=== PATIENT | female | born 1935 | race Caucasian/White ===

== ENCOUNTER 2016-11-21 06:44 | Day surgery (SDC) | payer OTHER ==
[~2016-11-21] VITALS: Ht 175.3 cm; Wt 56.7 kg
[2016-11-21] VITALS (7 sets, daily range): BP systolic 149–154; BP diastolic 88–102; PULSE 82–138; RESP 18–20; TEMP 97.2–97.8; O2SAT 95–97
[~2016-11-21 06:44] MED LIST: ASPI81 PO; CARD120C4 PO; GABA300C3 PO; LATA.005%O LEFT EYE; MECL25CH PO; TIMO.5%O EACH EYE; VITD400 PO
[2016-11-21] MEDS ORDERED: CHLORHEXIDINE GLUCONATE 2 % 1 PACK (2 CLOTHS) TOPICAL SCH (07:15)
[2016-11-21] MEDS: NS 1000 ML IV SCH (07:15)
[2016-11-21] MEDS ORDERED: POVIDONE IODINE 5% (ANTISEPSIS KIT) 4 APPLICATIONS EACH NARE SCH (07:15)
[2016-11-21] MEDS ORDERED: POVIDONE IODINE 5% (ANTISEPSIS KIT) 4 APPLICATIONS EACH NARE PRN (07:15)
[2016-11-21] MEDS ORDERED: INSULIN HUMAN REGULAR 1,000 UNITS/10 ML VIAL SQ PRN (07:15)
[2016-11-21] MEDS ORDERED: LORazepam 1 MG TAB SL SCH (07:15)
[2016-11-21] MEDS ORDERED: METOPROLOL TARTRATE 25 MG TAB PO PRN (07:15)
[2016-11-21] MEDS ORDERED: SODIUM CHLORID 0.9% 500 ML IV PRN (07:15)
[2016-11-21] MEDS ORDERED: MUPIROCIN 2% OINT 1 APPLIC/GM SYR NASAL SCH (07:15)
[2016-11-21] MEDS ORDERED: CHLORHEXIDINE GLUCONATE 2 % 1 PACK (2 CLOTHS) TOPICAL PRN (07:15)
[2016-11-21] MEDS ORDERED: LACTATED RINGER'S 1000 ML IV PRN (07:15)
[2016-11-21] MEDS ORDERED: ceFAZolin 2 GM PREMIX 50 ML IV SCH (07:15)
[2016-11-21] MEDS ORDERED: MIDAZOLAM HCL 2 MG/2 ML VIAL ONE (07:27)
[2016-11-21 07:39] LABS: AUTOMATED NEUTROPHIL # 4.5 TH/MM3 (1.8-7.7); BASOPHIL # 0.1 TH/MM3 (0-0.2); BASOPHIL % 0.9 % (0.0-2.0); EOSINOPHIL # 0.1 TH/MM3 (0-0.4); EOSINOPHIL % 1.8 % (0.0-4.0); HEMATOCRIT 46.9 % (35.0-46.0); HEMO FLAGS DIFF FINAL; LYMPH % 20.7 % (9.0-44.0); LYMPHOCYTE # 1.4 TH/MM3 (1.0-4.8); MEAN CELL VOLUME 89.6 FL (80.0-100.0); MEAN CORPUSCULAR HEMOGLOBIN 28.8 PG (27.0-34.0); MEAN CORPUSCULAR HGB CONC 32.2 % (32.0-36.0); MONO % 9.7 % (0.0-8.0); NEUT % 66.9 % (16.0-70.0); PLATELET COUNT 202 TH/MM3 (150-450); RED BLOOD COUNT 5.24 MIL/MM3 (4.00-5.30); RED CELL DISTRIBUTION WIDTH 16.2 % (11.6-17.2); WHITE BLOOD COUNT 6.8 TH/MM3 (4.0-11.0)
[2016-11-21] MEDS ORDERED: LATA0.002 EACH EYE (07:42)
[2016-11-21] MEDS ORDERED: ASPI1TAB69 PO (07:42)
[2016-11-21] MEDS ORDERED: AMOX500C PO (07:42)
[2016-11-21] MEDS ORDERED: SYNT88TA PO (07:42)
[2016-11-21] MEDS ORDERED: DILT120C9 PO (07:42)
[2016-11-21] MEDS ORDERED: GABA300C5 PO (07:42)
[2016-11-21] MEDS ORDERED: TIMO5SOL EACH EYE (07:42)
[2016-11-21] MEDS ORDERED: MULT1TAB84 PO (07:42)
[2016-11-21 07:47] LABS: APTT (PATIENT) 27.7 SEC (24.3-30.1); INTERNATIONAL NORMALIZED RATIO 1.1 RATIO
[2016-11-21 07:53] LABS: BICARBONATE 25.5 MEQ/L (21.0-32.0); POTASSIUM 4.5 MEQ/L (3.5-5.1)
[2016-11-21] MEDS ORDERED: PROPOFOL 200 MG/20 ML AMP OTHER ONE (08:00)
[2016-11-21] MEDS ORDERED: LEVOFLOXACIN 500 MG PREMIX INJ 100 ML IV ONE (08:09)
[2016-11-21] MEDS ORDERED: LIDOCAINE HCL 2% 50 ML VIAL ONE (08:09)
--- NOTE | 2016-11-21 09:08 | PD.CARD ---
SINGLE CHAMBER DEFIB IMPLANT NYHA Classification: Class II (Mild) Prevention: Primary Single Chamber Defib Implant PROCEDURE: Single chamber defibrillator implantation and device testing. INDICATIONS: Ms. Luu is a 81 -year-old female with hx of congestive heart failure, ejection fraction 25%, atrial fibrillation who undergo defibrillator implantation for sudden primary prevention. The risks, the nature and the benefit of the procedure are clearly stated to her . Risks include pneumothorax, cardiac perforation, stroke and even . She understood and agreed to proceed. PROCEDURE: After written, informed consent was obtained, the patient was brought to the EP Lab where she was prepped and draped in the sterile fashion. Conscious sedation was initiated and maintained throughout the procedure by anesthesiologist. Once sedation was verified, the left infraclavicular area was anesthetized with 2% Xylocaine. Using modified Seldinger technique, the left subclavian vein was cannulated on one occasion and one guide wire was advanced. Then, using #11 blade scalpel, a 3-cm incision was made two fingerbreadths below left clavicle. This incision was then taken down to the deep fascial layer using Bovie cautery and blunt dissection. Into the inferomedial direction, a device pocket was dissected, then the wire was dissected into the pocket. A 2-0 Vicryl suture was placed around the wires to prevent bleeding. At this point, over the wire, the 9- Maori dilator and introducer was advanced. As dilator and wire were removed, an active fixation right ventricular pacing, sensing and defibrillatory lead was advanced. After adequate pacing and sensing thresholds were obtained, the lead was secured in the pocket with #2 Ethibond suture. At that point, the pocket was copiously irrigated with antibiotic solution. The leads were connected to the generator and placed into the pocket. Because patient not on anticoagulation, device testing was not performed. I did proceed with wound closure. The deep fascial layer was approximated with 2-0 Vicryl suture in a continuous fashion. The subcutaneous layer was approximated with 2-0 Vicryl suture in a continuous fashion. The subcuticular layer was approximated with 2-0 Vicryl suture in a continuous fashion. Dermabond adhesive was applied to the wound, followed by a sterile pressure dressing. There was no complication. The patient tolerated procedure. Blood loss minimal. 1. Implanted Hardware: The implanted defibrillator generator is a Purchasing Platform, model number 422285, serial number [id number]. The right ventricular pacing, sensing and defibrillatory lead is a Purchasing Platform model number 167720, serial number [id number]. 2. Thresholds: The right ventricular pacing threshold in the bipolar mode was 0.9volts at 0.5 milliseconds, lead impedance 600 ohms and R-wave at 7.8 mV. Fib wave @ 0.4 mv. The right ventricular defibrillatory threshold was not measured. Patient in atrial fibrillation . 3. Settings: The device set in VVi 40 defibrillatory portion for two zones, one zone for ventricular tachycardia between 160 and 240 beats per minute. Initial therapy consists of one burst of ATP, one ramp, 81%, 10 pulse, 10 millisecond decremental, followed by 20, then 30 and all subsequent shocks at 40 joules defibrillatory shock, the second zone for ventricular fibrillation above 240beats per minute, first therapy at 30 and all subsequent shocks at 40 joules defibrillatory shock. CONCLUSIONS: Successful defibrillator implantation . COMMENT AND RECOMMENDATIONS: The patient will be transferred to the telemetry unit, will be observed and when stable can be discharged home. Octavio Harper MD November 21, 2016 09:08
[2016-11-21] MEDS ORDERED: ACETAMINOPHEN/CODEINE 300 MG/30 MG TAB PO PRN (09:15)
[2016-11-21] MEDS ORDERED: TEMAZEPAM 15 MG CAP PO PRN (09:15)
--- NOTE | 2016-11-21 09:41 | RADRPT ---
EXAM DATE/TIME: 11/21/2016 09:08 [facility] COMPARISON: CHEST SINGLE AP, February 02, 2015, 18:44. INDICATIONS : Post pacemaker placement. MEDICAL HISTORY : Afib. SURGICAL HISTORY : Mitral valve replacement. Cath. Ablation. ENCOUNTER: Initial ACUITY: 1 day PAIN SCORE: Non-responsive. LOCATION: Bilateral chest FINDINGS: Pacemaker device is noted with control pack over the left chest. Prosthetic aortic valve is noted. Louise ngs are focally clear. Is no evidence of infiltrate or effusion. No pneumothorax is identified. Cardi ac contours are grossly stable. CONCLUSION: Satisfactory appearance post pacemaker Surya Espinal MD on November 21, 2016 at 9:38 Board Certified Radiologist. This report was verified electronically.
[2016-11-21] MEDS: LEVOTHYROXINE SODIUM 88 MCG TAB PO SCH (10:00)
--- NOTE | 2016-11-21 14:29 | CATHPROC ---
[facility] HIS Report Study Information Study Number Scheduled Start Study Start [id number] 11/21/2016 Nov 21 2016 7:20AM Referring Institution Admit Source Facility Department 1 Other [facility] Physician and Clinical Staff Initial Octavio Kat Ela Teacher Shellie Weinberg,NELSON Other Jasbir Meredith,RT(R) Other [address]iss [address],RN Other Anesthesia, PAINT STOCKMAN Recorder Huong Feliciano RN Scrub Antonia Ponce,HABILITATION ASSISTANT TECH2 Procedures Performed Procedure Lead Insertion Equipment Time Job Training Supervisor Description Size Mfg Part Number Used/Scraped DEFIBRILLATOR, IMPERIA 7 VR-T 08:46 BIOTRONIK [id number] Used DX MRI LEAD, LINOX SMART S DX 65/15 08:40 BIOTRONIK * [id number] Used (BULK) DERMABOND, ADHESIVE SKIN 08:08 CORDIS/PACER * [id number] Used GLUE MINI 08:08 [employer] SUTURE, STRIP PLUS 1/2" * [id number] Used 08:08 [employer] PACER GRAY, LIMB * [id number] Used 08:08 [employer] PACER PACK, PACER CUSTOM * [id number] Used 08:08 [employer] PACER SAFE SHEATH, FR8, 13CM FR 8 [id number] Used 08:32 Needle Sponge Count 1 1 Used 08:32 Needle Sponge Count 2 22 Used 08:50 Needle Sponge Count 2 2 Used 08:51 Needle Sponge Count 2 2 Used 08:32 Needle Sponge Count 20 200 Used SUTURE, 0 ETHIBOND [CT1] (CX21D), 8pk SUTURE, 2-0 VICRYL [CT1] ([id number]) SUTURE, 2-0 VICRYL [CT1] ([id number]) 08:08 [employer],WARM AIR CCL * [id number] Used [place] PAD, ELECTROSURGICAL 08:08 * [id number] Used SURGICAL GROUNDING ORANGE 08:08 [employer]ZA. ELECTRODE, PRO-PADZ BIPHASIC * [id number] Used Equipment Model, Serial, Lot Number and Expiration Data Description Model Number Serial Number Lot Number Expiration Date DEFIBRILLATOR, IMPERIA 7 VR-T [id number] 09-20-2017 DX MRI LEAD, LINOX SMART S DX 65/15 [id number] 09-20-2018 (BULK) Labs Hgb (g/dl) Hct (%) RBC (MIL/MM3) WBC (l/cumm) Platelets (thousands) 12.00-18.00 37.00-55.00 4.80-6.20 4.80-10.80 140.00-450.00 15.1 46.9 5.2 6.8 202 Glucose (mg/dl) BUN (mg/dl) Creatinine (mg/dl) BUN:Creatinine (1:x) 60.00-110.00 8.00-20.00 0.10-9.00 10.00-20.00 89 12 0.7 17.1 Na (meq/l) K (meq/l) 138.00-146.00 3.80-5.10 141 4.5 INR (PTT:PT) 0.50-2.00 1.1 Medication Medication Total Dose (Bolus/Oral) Medication Total Dosage/Unit 2% XYLOCAINE 50 mL Medications (Bolus/Oral) Medication Time Given Dosage/Unit Administered By Reason 2% XYLOCAINE 11/21/2016 8:34:43 AM 50 mL Octavio Harper 50 mL 2% XYLOCAINE given in lab by Octavio Harper in Left Arm via Subcutaneous. Ordered by Ruperto Harper. left upper chest Medication (Drip) Medication Time Given Dosage/Unit Concentration/Unit Diluent (ml) Solution ANCEF 11/21/2016 8:15:46 AM 2 g 2 g ANCEF given in lab by Anesthesia, PAINT STOCKMAN in Right Forearm via Peripheral IV. Ordered by Ruperto Harper. IV Solutions 11/21/2016 8:08:41 AM 0 mL (IV) 500 NaCl .9 IV Solutions given in lab by Octavio Harper in Right Forearm via Peripheral IV. Pump/Drip Flow = 20 ml /hr using NaCl .9. Ordered by Octavio Harper. IV Solutions 11/21/2016 8:10:15 AM 0 mL (IV) 500 NaCl .9 IV Solutions given in lab by Octavio Harper in Left Wrist via Peripheral IV. Pump/Drip Flow = 20 ml/hr using NaCl .9. Ordered by Octavio Harper. LEVAQUIN 11/21/2016 8:15:33 AM 100 mL/hr 500 100 NaCl .9 100 mL/hr LEVAQUIN given in lab by Anesthesia, PAINT STOCKMAN via Peripheral IV. Pump/Drip Flow = 0 ml/hr using NaCl .9 with a concentration of 500 in 100 ml. Ordered by Octavio Harper. Initial Case Assessment Cardiovascular HR Rhythm NIBP 88 afib 130/87 Neurological State Oriented to time-place- Alert Moves all extremities person Respiration - General Respiration Rate SpO2 (%) (B/min) 12 97 Final Case Assessment Cardiovascular HR Rhythm NIBP 96 afib 93/63 Edema Present Skin color Skin None Normal Warm Dry Chronological Log Time Study Chronological Log 7:58:44 Patient arrived via Bed. 7:58:46 Patient Name, D.O.B, / Armband Verified By R.N. 7:58:47 Consent signed by the physician and the patient and verified by the [facility] staff. 7:58:50 Pre-op and post- op instructions given; patient acknowledges understanding of instructions. 7:58:53 Verbal Stimulation=2 Physical Stimulation=2 Airway=2 Respiration=2 TOTAL=8. (0=absent, 1=gaytan ited, 2=present) 7:58:56 Anesthesia at bedside. Assumes care of patient. 8:00:49 Anesthesia at bedside. Assumes care of patient. 8:07:20 Presedation assessment performed by [facility] RN. 8:07:23 Patient has been NPO for More than 6Hrs. 8:07:45 Skin Breakdown/pt states scabs lower legs 8:08:04 A # 20 IV was noted in the Forearm (right). Grade = 0 8:08:18 A # 20 IV was noted in the Wrist (left). Grade = 0 IV Solutions given in lab by Octavio Harper in Right Forearm via Peripheral IV. Pump/Drip Flow = 20 ml/hr using NaCl 8:08:41 .9. Ordered by Octavio Harper. IV Solutions given in lab by Octavio Harper in Left Wrist via Peripheral IV. Pump/Drip Flow = 20 ml/hr using NaCl .9. 8:10:15 Ordered by Octavio Harper. 8:10:57 History and physical on the chart or being dictated. 8:11:00 Reference ECG taken 100 mL/hr LEVAQUIN given in lab by Mague, PAINT STOCKMAN via Peripheral IV. Pump/Drip Flow = 0 ml/hr using NaCl .9 with 8:15:33 a concentration of 500 in 100 ml. Ordered by Octavio Harper. 8:15:46 2 g ANCEF given in lab by Anesthesia, PAINT STOCKMAN in Right Forearm via Peripheral IV. Ordered by Octavio Wei. Assessment: Initial Case, HR=88 BPM, Rhythm=afib, UGQG=818/87 mmhg 8:16:30 Neurological: State=Alert, Ox3, BLACK[place] Respiration: Resp=12 B/min, SpO2=97 % 8:17:56 all vital signs will be recorded on anes flow during the procedure 8:22:13 paged 8:22:25 chapo valdes is the fish egg packer 8:23:36 notified ready 8:29:03 Disposable Defibrillator Pads Placed On Patient. 8:29:07 Bovie ground pad applied to: right hip 8:29:57 Presedation re-assessment performed by [facility] RN. 8:29:59 2% CHLORHEXIDINE GLUCONATE WASH AND NASAL SWIPE DONE PRIOR TO PROCEDURE. 8:30:18 First Sponge And Instrument Count Done. and shellie c. Time Out. Correct patient, procedure, procedure equipment, site and side verified with physician present. Time 8:33:19 concurred by MD, individual staff and PAINT STOCKMAN. Time Out #2 - Consents verified, patient in correct position, all results are labled and display ed, safety precautions 8:33:32 taken, antibiotics administered. Time out concurred by MD, individual staff and PAINT STOCKMAN in procedur e 8:33:37 Case Start 50 mL 2% XYLOCAINE given in lab by Octavio Harper in Left Arm via Subcutaneous. Ordered by Octavio Harper. left 8:34:43 upper chest 8:37:38 Vascular access was obtained in the Subclav. Vein (Lft. 8:37:47 Wire inserted 8:37:51 Surgical Incision Made. 8:37:55 A pocket was created at the L Upper Chest. 8:40:11 A SAFE SHEATH, FR8, 13CM FR 8 was advanced into the Subclav. Vein (Lft using the Modified Seldinger technique. 8:40:28 A LEAD, LINOX SMART S DX 65/15 (BULK) * was inserted and positioned in the RV. 8:41:17 Lead placement verified under fluoroscopy 8:44:38 A DEFIBRILLATOR, IMPERIA 7 VR-T DX MRI was connected and placed in the pocket. 8:45:50 Pocket flushed with antibiotic solution 8:46:44 Second Sponge And Instrument Count Done. and shellie cDavian 8:49:12 The pocket was closed. 8:56:32 DOCU called. Spoke to Christie 8:56:53 Bedside Report will be given. 8:56:56 Final Sponge And Instrument Count Done. and shellie ramachandran 8:56:59 Steri-strips and a sterile dressing applied to site. 8:57:03 Case End 8:57:13 A sling will be placed on the affected arm. 8:57:38 Implant Procedure was performed. 8:57:51 A ICD Implant . (Single) Assessment: Final Case, HR=96 BPM, Rhythm=afib, NIBP=93/63 mmhg, Edema=None, Color=Normal, Ski n = Warm, 8:58:07 Dry 8:59:07 No case complications noted. 9:03:33 Defibrillator and ground pads removed. Skin intact. 9:03:38 Patient moved to stretcher 9:05:24 Pt out of room. End Study - Maximum Contrast Load Max Contrast Load (mL) 404.9 End Study - Radiation Exposure Fluoro Time (minutes) 1.1 End Study - Patient Disposition Complications Transferred To No [facility]
[2016-11-21] MEDS: DILTIAZEM-CD 240 MG CAP ER PO SCH (15:39)
[2016-11-21] MEDS: MULTIVITAMINS/MINERALS THERAPEUTIC TAB PO SCH (15:40)
--- NOTE | 2016-11-21 16:42 | EKG ---
Date Performed: 11/21/2016 Time Performed: 07:47:48 PTAGE: 81 years EKG: Atrial fibrillation. Cannot rule out septal infarct - age undetermined Lateral ST-T changes , consider ischemia Abnormal ECG PREVIOUS TRACING : 11/10/2015 11.54 Compared to previous tracing, lateral T wave inversion is n ow present. DOCTOR: Manan Anne Interpretating Date/Time 11/21/2016 16:42:11
[2016-11-21] MEDS: ceFAZolin 2 GM PREMIX 50 ML IV SCH (17:00)
[2016-11-21] MEDS: ONDANSETRON HCL 4 MG/2 ML VIAL IV PRN (17:50)
[2016-11-21] MEDS ORDERED: METOPROLOL TARTRATE 5 MG/5 ML VIAL IV PUSH PRN (19:15)
[2016-11-21] MEDS ORDERED: GABAPENTIN 300 MG CAP PO SCH (21:00)
[2016-11-21] MEDS: TIMOLOL MALEATE 0.25% OPHT SOLN 5 ML BTL EACH EYE SCH (21:00)
[2016-11-21] MEDS ORDERED: LATANOPROST 0.005% OPHT SOLN 2.5 ML BTL EACH EYE SCH (21:00)
[2016-11-21] MEDS: METOPROLOL TARTRATE 50 MG TAB PO SCH (21:51)
[2016-11-21] MEDS: ACETAMINOPHEN/CODEINE 300 MG/30 MG TAB PO PRN (21:56)
--- NOTE | 2016-11-21 22:39 | EKG ---
Date Performed: 11/21/2016 Time Performed: 12:40:02 PTAGE: 81 years EKG: Atrial fibrillation with rapid ventricular response. Possible anteroseptal infarct - age un determined Inferior/lateral ST-T changes, consider ischemia Abnormal ECG PREVIOUS TRACING : 11/21/2016 07.47 No significant change from previous tracing noted. DOCTOR: Manan Anne Interpretating Date/Time 11/21/2016 22:38:40
[2016-11-22] VITALS (13 sets, daily range): BP systolic 105–137; BP diastolic 81–93; PULSE 83–110; RESP 16–20; TEMP 97.2–98.2; O2SAT 92–97
[2016-11-22] MEDS: ceFAZolin 2 GM PREMIX 50 ML IV SCH ×2 (00:45→10:05)
[2016-11-22] MEDS: ACETAMINOPHEN/CODEINE 300 MG/30 MG TAB PO PRN (00:51)
[2016-11-22] MEDS: LEVOTHYROXINE SODIUM 88 MCG TAB PO SCH (05:29)
[2016-11-22] MEDS ORDERED: METO-309 PO (08:03)
[2016-11-22] MEDS ORDERED: CEPH-460 PO (08:03)
--- NOTE | 2016-11-22 08:11 | PD.CARD.PN ---
Subjective Subjective Remarks Stable s/p ICD implantation. No complaints. Objective Medications Current Medications Medications (Trade) Dose Ordered Sig/Jose Route Start Time Stop Time Status Last Admin Sodium Chloride 1,000 ml @ 30 mls/hr Q24H IV 11/21/16 07:15 Lactated Ringer's 1,000 ml @ 30 mls/hr Q24H PRN IV 11/21/16 07:15 11/24/16 07:14 Sodium Chloride 500 ml @ 30 mls/hr [id number] PRN IV 11/21/16 07:15 11/24/16 07:14 (Ancef 2 Gm Premix) 50 ml @ 100 mls/hr Q8H IV 11/21/16 17:00 11/22/16 09:29 11/22/16 00:45 (Restoril) 15 mg HS PRN PO 11/21/16 09:15 11/21/16 23:21 (Zofran Inj) 4 mg Q4H PRN IV 11/21/16 09:15 11/21/16 17:50 (Tylenol-Codeine #3) 1 tab Q4H PRN PO 11/21/16 09:15 11/22/16 00:51 (Tylenol-Codeine #3) 2 tab Q4H PRN PO 11/21/16 09:15 (Trimox) 500 mg DAILY PO 11/22/16 09:00 (Ecotrin Ec) 81 mg DAILY PO 11/22/16 09:00 (Neurontin) 300 mg HS PO 11/21/16 21:00 11/21/16 21:51 (Xalatan 0.005% Opth Soln) 1 drop HS EACH EYE 11/21/16 21:00 (Synthroid) 88 mcg DAILY@06 PO 11/21/16 10:00 11/22/16 05:29 (Theragran M Tab) 1 tab DAILY PO 11/21/16 12:00 11/21/16 15:40 (Timoptic 0.25% Opth Soln) 1 drop BID EACH EYE 11/21/16 21:00 (Cardizem Cd) 240 mg DAILY PO 11/21/16 12:00 11/21/16 15:39 (Lopressor Inj) 5 mg Q5M PRN IV PUSH 11/21/16 19:15 11/21/16 19:46 (Lopressor) 50 mg Q12HR PO 11/21/16 20:00 11/21/16 21:51 Vital Signs / I&O Vital Signs Date Time Temp Pulse Resp B/P Pulse Ox O2 Delivery O2 Flow Rate FiO2 11/22/16 07:00 104 11/22/16 06:00 104 11/22/16 05:00 110 11/22/16 04:00 98.0 105 20 137/93 94 11/22/16 04:00 96 11/22/16 03:00 102 11/22/16 02:00 106 11/22/16 01:00 95 11/22/16 00:00 94 11/22/16 00:00 98.2 103 20 106/81 97 11/21/16 23:00 100 11/21/16 22:00 120 11/21/16 21:00 114 11/21/16 20:00 97.8 133 20 149/88 96 11/21/16 20:00 112 11/21/16 19:00 138 11/21/16 18:25 97.2 130 18 151/96 95 11/21/16 09:43 92 Room Air I/O 11/21/16 11/21/16 11/21/16 11/22/16 11/22/16 11/22/16 07:00 15:00 23:00 07:00 15:00 23:00 Intake Total 240 ml Balance 240 ml Intake Oral 240 ml # Voids 1 Physical Exam GENERAL: Well-nourished, well-developed patient. SKIN: Warm and dry. LCW incision well approximated without erythema or drainage. HEAD: Normocephalic. EYES: No scleral icterus. No injection or drainage. NECK: Supple, trachea midline. No JVD or lymphadenopathy. CARDIOVASCULAR: Regular rate and rhythm without murmurs, gallops, or rubs. RESPIRATORY: Breath sounds equal bilaterally. No accessory muscle use. GASTROINTESTINAL: Abdomen soft, non-tender, nondistended. EXTREMITIES: No cyanosis, or edema. NEUROLOGICAL: Awake, alert, and oriented x 3. Non-focal. Imaging Last Impressions Chest X-Ray 11/21/16 0000 Signed Impressions: Service Date/Time: Monday, November 21, 2016 09:08 - CONCLUSION: Satisfactory appearance post pacemaker Surya Espinal MD Assessment and Plan Problem List: (1) S/P ICD (internal cardiac defibrillator) procedure Assessment and Plan: Stable for discharge from a cardiac standpoint. DC home, f/u with Dr. Harper in 2 weeks per my d/w him. (2) Chronic atrial fibrillation Assessment and Plan: Refusing anticoagulation, in spite of multiple conversations regarding the risks of thromboembolus with Dr. Harper. Previously on coumadin, but will not take medication per my d/w Dr. Harper. (3) Cardiomyopathy Assessment and Plan: EF 25%, s/p ICD for SCD prevention. Problem Qualifiers (1) Cardiomyopathy: Qualified Code: I42.9 - Cardiomyopathy, unspecified type Loly Jones November 22, 2016 08:11
[2016-11-22] MEDS: NS 1000 ML IV SCH (08:17)
[2016-11-22] MEDS ORDERED: ASPIRIN EC 81 MG TABEC PO SCH (09:00)
[2016-11-22] MEDS ORDERED: AMOXICILLIN (TRIHYDRATE) 500 MG CAP PO SCH (09:00)
[2016-11-22] MEDS: DILTIAZEM-CD 240 MG CAP ER PO SCH (10:04)
[2016-11-22] MEDS: METOPROLOL TARTRATE 50 MG TAB PO SCH (10:05)
[2016-11-22] MEDS: MULTIVITAMINS/MINERALS THERAPEUTIC TAB PO SCH (10:06)
[2016-11-22] MEDS: TIMOLOL MALEATE 0.25% OPHT SOLN 5 ML BTL EACH EYE SCH (10:06)
--- NOTE | 2016-11-22 11:49 | EKG ---
Date Performed: 11/22/2016 Time Performed: 05:46:54 PTAGE: 81 years EKG: Atrial fibrillation with rapid ventricular response Inferior/lateral ST-T changes may be du e ischemia Abnormal ECG PREVIOUS TRACING : 11/21/2016 12.40 No significant change from previous tracing noted. DOCTOR: Manan Anne Interpretating Date/Time 11/22/2016 11:48:21
[2016-11-22] MEDS: ONDANSETRON HCL 4 MG/2 ML VIAL IV PRN (11:58)
== END 2016-11-22 16:54 | disposition home or self-care (01) ==
LOC: HCAT 06:44 → HDIC 06:45 → HCIS 18:03 → HCAT 11-22 16:54
PROVIDERS: ATTEND Internal Medicine Interventional Cardiology
DX: I50.20 Unspecified systolic (congestive) heart failure (principal); I48.91 Unspecified atrial fibrillation; I34.1 Nonrheumatic mitral (valve) prolapse; I38 Endocarditis, valve unspecified; N18.2 Chronic kidney disease, stage 2 (mild); Z95.2 Presence of prosthetic heart valve; I48.92 Unspecified atrial flutter; I25.10 Atherosclerotic heart disease of native coronary artery without angina pectoris; E78.5 Hyperlipidemia, unspecified; G43.909 Migraine, unspecified, not intractable, without status migrainosus; E78.00 Pure hypercholesterolemia, unspecified; G62.9 Polyneuropathy, unspecified; M81.0 Age-related osteoporosis without current pathological fracture; Z79.82 Long term (current) use of aspirin
CPT/HCPCS: 33249; 71010; 76937; 80048; 85025; 85610; 85730; 86850; 86900; 86901; 93005; C1722; C1777; J0690; J1956; J2250; J2405; J3010

== ENCOUNTER 2016-12-15 17:38 | Observation (INO) | payer OTHER ==
[~2016-12-15] VITALS: Ht 175.3 cm; Wt 55.2 kg
[~2016-12-15 17:38] MED LIST changes: +ASPI1TAB69 PO; -ASPI81 PO; -CARD120C4 PO; +CEPH-460 PO; +DILT120C9 PO; -GABA300C3 PO; +GABA300C5 PO; -LATA.005%O LEFT EYE; +LATA0.002 EACH EYE; -MECL25CH PO; +METO-309 PO; +MULT1TAB84 PO; +SYNT88TA PO; -TIMO.5%O EACH EYE; +TIMO5SOL EACH EYE; -VITD400 PO
[2016-12-15 17:43] VITALS: BP 137/81; PULSE 126; RESP 18; TEMP 97.5; O2SAT 97
[2016-12-15] MEDS ORDERED: PIPERACIL-TAZO 4.5 GM PREMIX 100 ML IV STA (17:55)
[2016-12-15] MEDS ORDERED: TIMO0.5S30 EACH EYE (18:01)
[2016-12-15] MEDS ORDERED: GABA100C4 PO (18:01)
[2016-12-15] MEDS ORDERED: ASPI81CH37 CHEW (18:01)
--- NOTE | 2016-12-15 18:02 | PD ---
HPI Chief Complaint: Edema Time Seen by Provider: 17:55 Travel History International Travel<30 days: No Contact w/Intl Traveler<30days: No Traveled to known affect area: No History of Present Illness HPI 81-year-old female with history of atrial fibrillation, heart valve replacement , CHF, presents to the ER today because she states that 2 days ago she had kicked her sneaker on her left keller and had an abrasion there, then she started getting increased redness and bruising around the left leg that has been spreading. She states she has weeping from the area and it is getting more swollen and mildly tender. She has some mild shortness of breath but denies any fevers or any other issues. Modifying Factors: None Associated Signs & Symptoms: Left leg skin abrasion followed by edema, redness and weeping of left leg Risk Factors: CHF history PFSH Past Medical History Arthritis: No Asthma: No Autoimmune Disease: No Anxiety: No Depression: No Heart Rhythm Problems: Yes (afib) Cancer: No Cardiovascular Problems: Yes High Cholesterol: No Chemotherapy: No Chest Pain: Yes (afib) Congestive Heart Failure: Yes COPD: No Cerebrovascular Accident: No Diabetes: No Endocrine: No Gastrointestinal Disorders: No GERD: No Glaucoma: Yes (BILATERAL) Genitourinary: No Hepatitis: No Hiatal Hernia: No Hypertension: No Immune Disorder: No Kidney Stones: No Musculoskeletal: Yes (need surgery on left rotator cuff) Neurologic: Yes (PERIPHERAL NEUROPATHY) Psychiatric: No Reproductive: No Respiratory: Yes Integumentary: No Migraines: No Radiation Therapy: No Renal Failure: No Seizures: No Sickle Cell Disease: No Sleep Apnea: No Thyroid Disease: Yes (HYPOTHYROID) Ulcer: No Menopausal: Yes Past Surgical History Abdominal Surgery: No AICD: No Arteriovenous Shunt: No Body Medical Devices: HERIBERTO LEFT THIGH Cardiac Surgery: Yes (cath 2 weeks ago, abalation, pig heart valve) Ear Surgery: No Endocrine Surgery: No Eye Surgery: Yes (cataract removal OU) Genitourinary Surgery: No Gynecologic Surgery: No Insulin Pump: No Joint Replacement: Yes (heriberto Left leg) Oral Surgery: No Pacemaker: No Thoracic Surgery: No Other Surgery: Yes Social History Alcohol Use: Yes (OCCASSIONAL) Tobacco Use: No (FORMER) Substance Use: No Allergies-Medications (Allergen,Severity, Reaction): Coded Allergies: Digoxin (Verified Allergy, Severe, 12/15/16) Latex (Verified Allergy, Severe, 12/15/16) rash Vancomycin (Verified Allergy, Severe, 12/15/16) Demerol (Verified Adverse Reaction, Severe, NAUSEA, 12/15/16) Reported Meds & Prescriptions Reported Meds & Active Scripts Active Lopressor (Metoprolol Tartrate) 50 Mg Tab 50 Mg PO Q12HR 30 Days Reported Gabapentin 100 Mg Cap 100 Mg PO BID Timolol Opth Drops 0.5 % Soln 1 Drop EACH EYE BID Aspirin Low Dose (Aspirin) 81 Mg Chew 81 Mg CHEW DAILY Synthroid (Levothyroxine Sodium) 88 Mcg Tab 88 Mcg PO DAILY Latanoprost Opth Drops (Latanoprost) 0.005% Drops 1 Drop EACH EYE HS Refrigerate until opened. Diltiazem ER 12 HR (Diltiazem HCl) 120 Mg Caper 120 Mg PO BID Review of Systems Except as stated in HPI: all other systems reviewed are Neg Physical Exam Narrative GENERAL: Well-developed elderly white female patient currently mild distress. Awake and oriented 3. SKIN: Focused skin assessment warm/dry. HEAD: Atraumatic. Normocephalic. EYES: Pupils equal and round. No scleral icterus. No injection or drainage. ENT: No nasal bleeding or discharge. Mucous membranes pink and moist. NECK: Trachea midline. No JVD. CARDIOVASCULAR: Fast and irregularly irregular. RESPIRATORY: No accessory muscle use. Clear to auscultation. Breath sounds equal bilaterally. GASTROINTESTINAL: Abdomen soft, non-tender, nondistended. Hepatic and splenic margins not palpable. MUSCULOSKELETAL: No obvious deformities. No clubbing. No cyanosis. There is notable skin tear on the mid anterior left keller and notable erythema and ecchymosis extending along the entire anterior left keller with small amount of clear fluid exudates from skin tear. NEUROLOGICAL: Awake and alert. No obvious cranial nerve deficits. Motor grossly within normal limits. Normal speech. PSYCHIATRIC: Appropriate mood and affect; insight and judgment normal. Data Data Last Documented VS Vital Signs Date Time Temp Pulse Resp B/P Pulse Ox O2 Delivery O2 Flow Rate FiO2 12/15/16 19:03 102 18 115/85 96 Room Air 12/15/16 17:43 97.5 Orders Complete Blood Count With Diff (12/15/16 17:55) Comprehensive Metabolic Panel (12/15/16 17:55) Lactic Acid Sepsis Protocol (12/15/16 17:55) Blood Culture (12/15/16 17:55) Chest, Single Ap (12/15/16 17:55) Blood Glucose (12/15/16 17:55) Ecg Monitoring (12/15/16 17:55) Iv Access Insert/Monitor (12/15/16 17:55) Oximetry (12/15/16 17:55) Oxygen Administration (12/15/16 17:55) Piperacil-Tazo 4.5 Gm Premix (Zosyn 4.5 (12/15/16 17:55) B-Type Natriuretic Peptide (12/15/16 17:55) Us Leg Venous Doppler (12/15/16 17:55) Electrocardiogram (12/15/16 18:36) Furosemide Inj (Lasix Inj) (12/15/16 19:00) Labs Laboratory Tests Test 12/15/16 18:05 White Blood Count 9.2 TH/MM3 Red Blood Count 4.59 MIL/MM3 Hemoglobin 13.6 GM/DL Hematocrit 40.8 % Mean Corpuscular Volume 89.1 FL Mean Corpuscular Hemoglobin 29.6 PG Mean Corpuscular Hemoglobin 33.2 % Concent Red Cell Distribution Width 16.4 % Platelet Count 187 TH/MM3 Mean Platelet Volume 8.3 FL Neutrophils (%) (Auto) 76.2 % Lymphocytes (%) (Auto) 11.4 % Monocytes (%) (Auto) 9.1 % Eosinophils (%) (Auto) 2.6 % Basophils (%) (Auto) 0.7 % Neutrophils # (Auto) 7.0 TH/MM3 Lymphocytes # (Auto) 1.1 TH/MM3 Monocytes # (Auto) 0.8 TH/MM3 Eosinophils # (Auto) 0.2 TH/MM3 Basophils # (Auto) 0.1 TH/MM3 CBC Comment DIFF FINAL Differential Comment Sodium Level 141 MEQ/L Potassium Level 4.1 MEQ/L Chloride Level 104 MEQ/L Carbon Dioxide Level 28.5 MEQ/L Anion Gap 9 MEQ/L Blood Urea Nitrogen 15 MG/DL Creatinine 0.65 MG/DL Estimat Glomerular Filtration 87 ML/MIN Rate Random Glucose 103 MG/DL Lactic Acid Level 0.9 mmol/L Calcium Level 8.7 MG/DL Total Bilirubin 0.7 MG/DL Aspartate Amino Transf 23 U/L (AST/SGOT) Alanine Aminotransferase 21 U/L (ALT/SGPT) Alkaline Phosphatase 166 U/L B-Type Natriuretic Peptide 1861 PG/ML Total Protein 6.6 GM/DL Albumin 3.4 GM/DL MDM Medical Decision Making Medical Screen Exam Complete: Yes Emergency Medical Condition: Yes Medical Record Reviewed: Yes Interpretation(s) EKG shows A. fib with rapid ventricular response at a rate of 190s per minute. No signs of acute ST-T changes. Laboratory Tests Test 12/15/16 18:05 Neutrophils (%) (Auto) 76.2 % (16.0-70.0) Monocytes (%) (Auto) 9.1 % (0.0-8.0) Estimat Glomerular Filtration 87 ML/MIN (>89) Rate Alkaline Phosphatase 166 U/L (45-117) B-Type Natriuretic Peptide 1861 PG/ML (0-100) Last 24 hours Impressions Chest X-Ray 12/15/16 9242 Signed Impressions: Service Date/Time: November 18:12 - CONCLUSION: No acute cardiopulmonary disease. Previous median sternotomy. Compensated cardiomegaly. Surya Cole MD Differential Diagnosis Left leg swelling, rednesscellulitis versus DVT versus dependent leg edema/CHF Narrative Course Patient is fairly symptomatic with an elevated BNP, I suspect that she has some of the leg edema secondary to CHF. She has no DVT on ultrasound. Lab work did not indicate significant signs of sepsis. However, IV antibiotics have been given after cultures are been drawn as precaution. At this point, my plan would be to admit the patient for further treatment. Case is discussed with Dr. Mueller for admission. Diagnosis Primary Impression: CHF exacerbation Additional Impression: Left leg cellulitis Admitting Information Admitting Physician Requests: Admit Carmel Vazquez MD December 15, 2016 18:02 Carmel Vazquez MD December 15, 2016 18:02
[2016-12-15 18:10] VITALS: O2SAT 97
[2016-12-15 18:19] LABS: BASOPHIL # 0.1 TH/MM3 (0-0.2); BASOPHIL % 0.7 % (0.0-2.0); EOSINOPHIL # 0.2 TH/MM3 (0-0.4); EOSINOPHIL % 2.6 % (0.0-4.0); HEMATOCRIT 40.8 % (35.0-46.0); HEMO FLAGS DIFF FINAL; LYMPH % 11.4 % (9.0-44.0); LYMPHOCYTE # 1.1 TH/MM3 (1.0-4.8); MEAN CELL VOLUME 89.1 FL (80.0-100.0); MEAN CORPUSCULAR HEMOGLOBIN 29.6 PG (27.0-34.0); MEAN CORPUSCULAR HGB CONC 33.2 % (32.0-36.0); MONO % 9.1 % (0.0-8.0); NEUT % 76.2 % (16.0-70.0); PLATELET COUNT 187 TH/MM3 (150-450); RED BLOOD COUNT 4.59 MIL/MM3 (4.00-5.30); RED CELL DISTRIBUTION WIDTH 16.4 % (11.6-17.2); WHITE BLOOD COUNT 9.2 TH/MM3 (4.0-11.0)
[2016-12-15 18:23] LABS: CHLORIDE 104 MEQ/L (98-107); POTASSIUM 4.1 MEQ/L (3.5-5.1); SODIUM (NA) 141 MEQ/L (136-145)
[2016-12-15 18:26] LABS: ANION GAP 9 MEQ/L (5-15); BICARBONATE 28.5 MEQ/L (21.0-32.0)
[2016-12-15 18:27] LABS: BLOOD UREA NITROGEN 15 MG/DL (7-18)
[2016-12-15 18:30] LABS: ALT (GPT) 21 U/L (10-53); AST (GOT) 23 U/L (15-37); GLOMERULAR FILTRATION RATE 87 ML/MIN (>89)
[2016-12-15 18:31] LABS: TOTAL BILIRUBIN ADULT 0.7 MG/DL (0.2-1.0)
[2016-12-15 18:32] LABS: ALKALINE PHOSPHATASE 166 U/L (45-117)
--- NOTE | 2016-12-15 18:32 | RADHPO ---
EXAM DATE/TIME: 12/15/2016 18:12 [facility] COMPARISON: CHEST SINGLE AP, November 21, 2016, 9:08. INDICATIONS : Patient states she has an infection in her left leg between her knee and ankle. MEDICAL HISTORY : A-fib. SURGICAL HISTORY : Pacemaker. Mitral valve replacement. Cath. Ablation. ENCOUNTER: Initial ACUITY: 2 days PAIN SCORE: 4/10 LOCATION: Left Lower leg. FINDINGS: No infiltrate, effusion or pneumothorax demonstrated. Mild to moderate cardiomegaly is unchanged. Pat ient has had previous median sternotomy and aortic valve replacement. Cardiac pacer/defibrillator aga in noted. CONCLUSION: No acute cardiopulmonary disease. Previous median sternotomy. Compensated cardiomegaly. Surya Cole MD on December 15, 2016 at 18:30 Board Certified Radiologist. This report was verified electronically.
[2016-12-15] MEDS ORDERED: FUROSEMIDE 40 MG/4 ML VIAL IV PUSH ONE (19:00)
[2016-12-15 19:03] VITALS: BP 115/85; PULSE 102; RESP 18; O2SAT 96
--- NOTE | 2016-12-15 19:15 | RADHPO ---
EXAM DATE/TIME: 12/15/2016 18:36 [facility] COMPARISON: No previous studies available for comparison. INDICATIONS : Left leg pain. MEDICAL HISTORY : Hypothyroidism. Glaucoma. CHF. Peripheral neuropathy. A-fib. SURGICAL HISTORY : Cardiac cath. Elvis in left leg. ENCOUNTER: Initial ACUITY: 3 days PAIN SCORE: 4/10 LOCATION: Left leg. TECHNIQUE: Venous ultrasound of the leg was performed from the inguinal ligament to the proximal calf. Real-jem e, color Doppler and spectral tracing, compression and augmentation techniques were used. FINDINGS: There is normal compressibility of the deep venous system from the inguinal region to the proximal ca lf. No echogenic clot is seen in the lumen of the common femoral, femoral, popliteal, and posterior tibial veins. There is a normal response of the venous system to proximal and distal augmentation an d respiration. CONCLUSION: No left lower extremity DVT. Surya Cole MD on December 15, 2016 at 19:13 Board Certified Radiologist. This report was verified electronically.
[2016-12-15] MEDS ORDERED: SODIUM CHLORIDE 0.9% FLUSH 10 ML FLUSH IV FLUSH PRN (19:45)
[2016-12-15] MEDS ORDERED: NALOXONE HCL 0.4 MG/ML AMP IV PRN (19:45)
[2016-12-15 20:22] VITALS: BP 125/90; PULSE 114; RESP 18; O2SAT 97
[2016-12-15] MEDS: SODIUM CHLORIDE 0.9% FLUSH 10 ML FLUSH IV FLUSH SCH (21:10)
[2016-12-15] MEDS: GABAPENTIN 100 MG CAP PO SCH (21:10)
[2016-12-15 22:48] VITALS: BP 128/92; PULSE 112; RESP 18; O2SAT 97
[2016-12-15 23:15] VITALS: BP 130/89; PULSE 129; RESP 25; TEMP 97.8; O2SAT 99
[2016-12-16] VITALS (11 sets, daily range): BP systolic 103–142; BP diastolic 63–93; PULSE 37–144; RESP 12–28; TEMP 98–99.3; O2SAT 93–98
[2016-12-16] MEDS ORDERED: DILTIAZEM-CD 120 MG CAP ER PO ONE (00:30)
[2016-12-16] MEDS ORDERED: DILTIAZEM HCL 25 MG/5 ML VIAL IV ONE ×2 (02:15→08:15)
[2016-12-16 04:51] LABS: AUTOMATED NEUTROPHIL # 5.7 TH/MM3 (1.8-7.7); BASOPHIL % 0.5 % (0.0-2.0); EOSINOPHIL # 0.3 TH/MM3 (0-0.4); HEMO FLAGS DIFF FINAL; LYMPH % 14.8 % (9.0-44.0); LYMPHOCYTE # 1.2 TH/MM3 (1.0-4.8); MEAN CELL VOLUME 89.7 FL (80.0-100.0); MEAN CORPUSCULAR HEMOGLOBIN 29.3 PG (27.0-34.0); MEAN CORPUSCULAR HGB CONC 32.6 % (32.0-36.0); MONO % 10.5 % (0.0-8.0); NEUT % 70.2 % (16.0-70.0); PLATELET COUNT 181 TH/MM3 (150-450); RED BLOOD COUNT 4.46 MIL/MM3 (4.00-5.30); RED CELL DISTRIBUTION WIDTH 16.3 % (11.6-17.2); WHITE BLOOD COUNT 8.1 TH/MM3 (4.0-11.0)
[2016-12-16 05:01] LABS: POTASSIUM 3.7 MEQ/L (3.5-5.1)
[2016-12-16 05:04] LABS: BICARBONATE 29.1 MEQ/L (21.0-32.0)
[2016-12-16] MEDS: LEVOTHYROXINE SODIUM 88 MCG TAB PO SCH (06:20)
[2016-12-16] MEDS ORDERED: ACETAMINOPHEN 325 MG TAB PO PRN (08:30)
--- NOTE | 2016-12-16 08:33 | HHI.HP ---
[facility] Primary Care Physician Mark Zuluaga MD Admission Diagnosis CHF exacerbation/left leg cellulitis Diagnoses: (1) Left leg cellulitis Diagnosis: Principal Chief Complaint: left leg pain and swelling Travel History International Travel<30 Days: No Contact w/Intl Traveler <30 Da: No Traveled to Known Affected Are: No History of Present Illness patient is a 81 y/o female with history of atrial fibrillation who presented to ER with pain and swelling of the left leg. she says that she hit her left leg with her sneaker a few days ago. she had a superficial laceration on the left leg. but she says that the the left leg started to get swollen and red and painful which got worse. she denies any fever or chills. Review of Systems Constitutional: DENIES: Fever, Weight loss, Chills, Night Sweats Eyes: DENIES: Blurred vision, Diplopia, Vision loss, Double Vision Ears, nose, mouth, throat: DENIES: Tinnitus, Vertigo, Throat pain, Epistaxis Respiratory: DENIES: Apneas, Cough, Snoring, Wheezing, Hemoptysis, Sputum production, Shortness of breath Cardiovascular: COMPLAINS OF: Lower Extremity Edema, DENIES: Chest pain, Palpitations, Syncope, Dyspnea on Exertion, PND, Orthopnea, Claudication Gastrointestinal: DENIES: Abdominal pain, Black stools, Bloody stools, Constipation, Diarrhea, Nausea, Vomiting, Difficulty Swallowing, Anorexia Genitourinary: DENIES: Urinary frequency, Urgency, Hematuria, Dysuria Musculoskeletal: COMPLAINS OF: Muscle aches (left leg.), DENIES: Joint pain, Stiffness, Joint Swelling Integumentary: DENIES: Rash Neurologic: DENIES: Abnormal gait, Headache, Localized weakness, Paresthesias, Seizures, Speech Problems, Tremor, Poor Balance Psychiatric: DENIES: Anxiety, Confusion, Mood changes, Depression, Hallucinations, Agitation, Suicidal Ideation, Homicidal Ideation, Delusions Past Family Social History Past Medical History atrial fibrillation hypertension heart valve disease Past Surgical History heart valve replacement Reported Medications Gabapentin 100 Mg Cap 100 Mg PO BID Timolol Opth Drops 0.5 % Soln 1 Drop EACH EYE BID Aspirin Low Dose (Aspirin) 81 Mg Chew 81 Mg CHEW DAILY Synthroid (Levothyroxine Sodium) 88 Mcg Tab 88 Mcg PO DAILY Latanoprost Opth Drops (Latanoprost) 0.005% Drops 1 Drop EACH EYE HS Refrigerate until opened. Diltiazem ER 12 HR (Diltiazem HCl) 120 Mg Caper 120 Mg PO BID Allergies: Coded Allergies: Digoxin (Verified Allergy, Severe, 12/15/16) Latex (Verified Allergy, Severe, 12/15/16) rash Vancomycin (Verified Allergy, Severe, 12/15/16) Demerol (Verified Adverse Reaction, Severe, NAUSEA, 12/15/16) Active Ordered Medications Current Medications Piperacillin Sod/ Tazobactam Sod (Zosyn 4.5 Gm Premix) 100 ml @ 200 mls/hr ONCE STAT IV Last administered on 12/15/16 18:19; Start 12/15/16 at 17:55; Stop 12/15/16 at 18:24; Status DC Furosemide (Lasix Inj) 40 mg ONCE ONCE IV PUSH Last administered on 12/15/16 19:16; Start 12/15/16 at 19:00; Stop 12/15/16 at 19:01; Status DC Sodium Chloride (NS Flush) 2 ml UNSCH PRN IV FLUSH FLUSH AFTER USING IV ACCESS ; Start 12/15/16 at 19:45 Sodium Chloride (NS Flush) 2 ml BID IV FLUSH Last administered on 12/15/16 21: 10; Start 12/15/16 at 21:00 Naloxone HCl (Narcan Inj) 0.4 mg UNSCH PRN IV SEE LABEL COMMENTS; Start at 19:45 Furosemide (Lasix Inj) 40 mg BID@09,18 IV PUSH ; Start 12/16/16 at 09:00 Aspirin (Aspirin Chew) 81 mg DAILY CHEW ; Start 12/16/16 at 09:00 Gabapentin (Neurontin) 100 mg BID PO Last administered on 12/15/16 21:10; Start 12/15/16 at 21:00 Levothyroxine Sodium (Synthroid) 88 mcg DAILY@06 PO Last administered on 06:20; Start 12/16/16 at 06:00 Diltiazem HCl (Cardizem Cd) 240 mg DAILY PO ; Start 12/16/16 at 09:00 Diltiazem HCl (Cardizem Cd) 120 mg ONCE ONCE PO Last administered on 00:32; Start 12/16/16 at 00:30; Stop 12/16/16 at 00:31; Status DC Diltiazem HCl (Cardizem Inj) 10 mg ONCE ONCE IV Last administered on 02:16; Start 12/16/16 at 02:15; Stop 12/16/16 at 02:16; Status DC Social History doesn't smoke,drinks occasionally. Physical Exam Vital Signs Vital Signs Date Time Temp Pulse Resp B/P Pulse Ox O2 Delivery O2 Flow Rate FiO2 12/16/16 07:42 98.0 144 24 109/88 96 12/16/16 07:33 144 24 109/88 96 12/16/16 04:00 98.8 126 27 117/68 98 12/16/16 02:00 113 12 137/63 98 12/16/16 00:00 130 12/15/16 23:29 112 18 97 12/15/16 23:15 97.8 129 25 130/89 99 12/15/16 22:48 112 18 128/92 97 Room Air 12/15/16 20:22 114 18 125/90 97 Room Air 12/15/16 19:03 102 18 115/85 96 Room Air 12/15/16 18:10 97 Room Air 12/15/16 17:43 97.5 126 18 137/81 97 Physical Exam GENERAL: This is a well-nourished, well-developed patient, in no apparent distress. SKIN: erythema over the left leg. HEAD: Atraumatic. Normocephalic. No temporal or scalp tenderness. EYES: Pupils equal round and reactive. Extraocular motions intact. No scleral icterus. No injection or drainage. ENT: Nose without bleeding, purulent drainage or septal hematoma. Throat without erythema, tonsillar hypertrophy or exudate. Uvula midline. Airway patent. NECK: Trachea midline. No JVD or lymphadenopathy. Supple, nontender, no meningeal signs. CARDIOVASCULAR: irregular rhythm and tachycardic RESPIRATORY: Clear to auscultation. Breath sounds equal bilaterally. No wheezes , rales, or rhonchi. GASTROINTESTINAL: Abdomen soft, non-tender, nondistended. No hepato-splenomegaly , or palpable masses. No guarding. MUSCULOSKELETAL: left leg is swollen and mildly tender to touch. NEUROLOGICAL: Awake and alert. Cranial nerves II through XII intact. Motor and sensory grossly within normal limits. Five out of 5 muscle strength in all muscle groups. Normal speech. Laboratory Laboratory Tests Test 12/15/16 12/15/16 12/16/16 12/16/16 18:05 23:52 04:22 05:03 White Blood Count 9.2 8.1 Red Blood Count 4.59 4.46 Hemoglobin 13.6 13.0 Hematocrit 40.8 40.0 Mean Corpuscular Volume 89.1 89.7 Mean Corpuscular Hemoglobin 29.6 29.3 Mean Corpuscular Hemoglobin 33.2 32.6 Concent Red Cell Distribution Width 16.4 16.3 Platelet Count 187 181 Mean Platelet Volume 8.3 8.2 Neutrophils (%) (Auto) 76.2 70.2 Lymphocytes (%) (Auto) 11.4 14.8 Monocytes (%) (Auto) 9.1 10.5 Eosinophils (%) (Auto) 2.6 4.0 Basophils (%) (Auto) 0.7 0.5 Neutrophils # (Auto) 7.0 5.7 Lymphocytes # (Auto) 1.1 1.2 Monocytes # (Auto) 0.8 0.9 Eosinophils # (Auto) 0.2 0.3 Basophils # (Auto) 0.1 0.0 CBC Comment DIFF FINAL DIFF FINAL Differential Comment Sodium Level 141 142 Potassium Level 4.1 3.7 Chloride Level 104 105 Carbon Dioxide Level 28.5 29.1 Anion Gap 9 8 Blood Urea Nitrogen 15 11 Creatinine 0.65 0.55 Estimat Glomerular Filtration 87 106 Rate Random Glucose 103 90 Lactic Acid Level 0.9 Calcium Level 8.7 8.3 Total Bilirubin 0.7 Aspartate Amino Transf 23 (AST/SGOT) Alanine Aminotransferase 21 (ALT/SGPT) Alkaline Phosphatase 166 B-Type Natriuretic Peptide 1861 Total Protein 6.6 Albumin 3.4 Total Creatine Kinase 39 30 Troponin I 0.02 0.03 D-Dimer Quantitative (PE/DVT) 5.88 Date/Time Procedure Status Source Growth 12/15/16 18:05 Aerobic Blood Culture Received Blood Peripheral Pending 12/15/16 18:05 Anaerobic Blood Culture Received Blood Peripheral Pending Result Diagram: 12/16/16 0422 12/16/16421 Imaging Last Impressions Lower Extremity Ultrasound 12/15/161754 Signed Impressions: Service Date/Time: November 18:36 - CONCLUSION: No left lower extremity DVT. Surya Cole MD Chest X-Ray 12/15/161754 Signed Impressions: Service Date/Time: , December 15, 2016 18:12 - CONCLUSION: No acute cardiopulmonary disease. Previous median sternotomy. Compensated cardiomegaly. Surya Cole MD Assessment and Plan Assessment and Plan A/P - cellulitis of the left leg continue with IV antibiotics and pain control- keep the left leg elevated. follow the cultures. -atrial fibrillation with rapid ventricular response one dose of IV cardizem today- started on po cardizem- continue aspirin- she says that she doesn't want to take ' blood thinners'. -s/p heart valve replacement- on aspirin -hypertension; resume home meds Discussed Condition With the patient and RN. Reynold Rodriguez MD December 16, 2016 08:33
[2016-12-16] MEDS: FUROSEMIDE 40 MG/4 ML VIAL IV PUSH SCH ×2 (08:51→18:56)
[2016-12-16] MEDS: GABAPENTIN 100 MG CAP PO SCH ×2 (08:52→20:20)
[2016-12-16] MEDS: DILTIAZEM-CD 240 MG CAP ER PO SCH (08:52)
[2016-12-16] MEDS: ASPIRIN 81 MG CHEW TAB CHEW SCH (08:52)
[2016-12-16] MEDS: SODIUM CHLORIDE 0.9% FLUSH 10 ML FLUSH IV FLUSH SCH ×2 (09:00→20:20)
[2016-12-16] MEDS: CLINDAMYCIN INJ 300 MG in SODIUM CHLORIDE 0.9% INJ 100 ML IV SCH ×2 (10:46→18:56)
--- NOTE | 2016-12-16 14:29 | EKG ---
Date Performed: 12/15/2016 Time Performed: 18:48:30 PTAGE: 81 years EKG: Atrial fibrillation with rapid ventricular response with PVC(s) or aberrant ventricular con duction Poor R wave progression - probable normal variant Lateral ST-T changes may be due to myocardi al ischemia Compared to prior tracing no significant change Abnormal ECG PREVIOUS TRACING : 11/22/2016 05.46 DOCTOR: Parvez Wade Interpretating Date/Time 12/16/2016 14:24:03
[2016-12-16] MEDS ORDERED: DILTIAZEM HCL 25 MG/5 ML VIAL ONE (18:46)
[2016-12-16] MEDS ORDERED: DILTIAZEM INJ 125 MG in SODIUM CHLORIDE 0.9% INJ 100 ML IV SCH (22:15)
[2016-12-17] VITALS (8 sets, daily range): BP systolic 107–134; BP diastolic 57–88; PULSE 86–132; RESP 19–35; TEMP 98–99.5; O2SAT 93–94
[2016-12-17] MEDS: CLINDAMYCIN INJ 300 MG in SODIUM CHLORIDE 0.9% INJ 100 ML IV SCH (01:53)
[2016-12-17] MEDS: LEVOTHYROXINE SODIUM 88 MCG TAB PO SCH (06:18)
[2016-12-17] MEDS: FUROSEMIDE 40 MG/4 ML VIAL IV PUSH SCH (08:11)
[2016-12-17] MEDS: DILTIAZEM-CD 240 MG CAP ER PO SCH (08:12)
[2016-12-17] MEDS: SODIUM CHLORIDE 0.9% FLUSH 10 ML FLUSH IV FLUSH SCH (08:12)
[2016-12-17] MEDS: GABAPENTIN 100 MG CAP PO SCH (08:12)
[2016-12-17] MEDS: ASPIRIN 81 MG CHEW TAB CHEW SCH (08:12)
--- NOTE | 2016-12-17 09:30 | HHI.PR ---
Subjective Remarks resting comfortably with no distress. no fever. left leg looks much better today. HR still elevated and now on cardizem drip. Objective Vitals Vital Signs Date Time Temp Pulse Resp B/P Pulse Ox O2 Delivery O2 Flow Rate FiO2 12/17/16 04:00 99.5 104 28 126/85 93 12/17/16 04:00 98.7 104 28 126/85 93 12/17/16 03:00 114 19 121/69 12/17/16 02:00 106 19 116/57 12/17/16 00:45 126 21 107/79 12/17/16 00:30 122 20 134/88 12/17/16 00:00 132 21 115/75 94 12/16/16 23:45 130 18 128/81 12/16/16 23:41 98.7 136 21 103/84 94 12/16/16 23:41 136 12/16/16 20:13 124 12/16/16 20:00 99.3 116 28 142/93 93 12/16/16 15:42 106 18 12/16/16 11:42 128 19 94 I/O 12/16/16 12/16/16 12/16/16 12/17/16 12/17/16 12/17/16 07:00 15:00 23:00 07:00 15:00 23:00 Intake Total 1100 ml 340 ml 260 ml Output Total 1500 ml 250 ml 0 ml Balance -400 ml 90 ml 260 ml Intake Oral 1000 ml 240 ml 120 ml IV Total 100 ml 100 ml 140 ml Output Urine Total 1500 ml 250 ml 0 ml # Bowel Movements 3 0 0 Result Diagram: 12/16/16 0422 12/16/16421 Imaging Last Impressions Lower Extremity Ultrasound 12/15/161754 Signed Impressions: Service Date/Time: November 18:36 - CONCLUSION: No left lower extremity DVT. Surya Cole MD Chest X-Ray 12/15/161754 Signed Impressions: Service Date/Time: November 18:12 - CONCLUSION: No acute cardiopulmonary disease. Previous median sternotomy. Compensated cardiomegaly. Surya Cole MD Objective Remarks GENERAL: This is a well-nourished, well-developed patient, in no apparent distress. CARDIOVASCULAR: Regular rate and regular rhythm without murmurs, gallops, or rubs. RESPIRATORY: Clear to auscultation. Breath sounds equal bilaterally. No wheezes , rales, or rhonchi. GASTROINTESTINAL: Abdomen soft, non-tender, nondistended. Normal, active bowel sounds MUSCULOSKELETAL: Extremities without clubbing, cyanosis, or edema. NEURO: Alert & Oriented x4 to person, place, time, situation. Moves all ext x4 skin; erythema over the left leg has much improved. Procedures none Medications and IVs Current Medications Piperacillin Sod/ Tazobactam Sod (Zosyn 4.5 Gm Premix) 100 ml @ 200 mls/hr ONCE STAT IV Last administered on 12/15/16 18:19; Start 12/15/16 at 17:55; Stop 12/15/16 at 18:24; Status DC Furosemide (Lasix Inj) 40 mg ONCE ONCE IV PUSH Last administered on 12/15/16 19:16; Start 12/15/16 at 19:00; Stop 12/15/16 at 19:01; Status DC Sodium Chloride (NS Flush) 2 ml UNSCH PRN IV FLUSH FLUSH AFTER USING IV ACCESS ; Start 12/15/16 at 19:45 Sodium Chloride (NS Flush) 2 ml BID IV FLUSH Last administered on 12/17/16 08: 12; Start 12/15/16 at 21:00 Naloxone HCl (Narcan Inj) 0.4 mg UNSCH PRN IV SEE LABEL COMMENTS; Start at 19:45 Furosemide (Lasix Inj) 40 mg BID@09,18 IV PUSH Last administered on 12/17/16 08:11; Start 12/16/16 at 09:00 Aspirin (Aspirin Chew) 81 mg DAILY CHEW Last administered on 12/17/16 08:12; Start 12/16/16 at 09:00 Gabapentin (Neurontin) 100 mg BID PO Last administered on 12/17/16 08:12; Start 12/15/16 at 21:00 Levothyroxine Sodium (Synthroid) 88 mcg DAILY@06 PO Last administered on 06:18; Start 12/16/16 at 06:00 Diltiazem HCl (Cardizem Cd) 240 mg DAILY PO Last administered on 12/17/16 08: 12; Start 12/16/16 at 09:00 Diltiazem HCl (Cardizem Cd) 120 mg ONCE ONCE PO Last administered on 00:32; Start 12/16/16 at 00:30; Stop 12/16/16 at 00:31; Status DC Diltiazem HCl (Cardizem Inj) 10 mg ONCE ONCE IV Last administered on 02:16; Start 12/16/16 at 02:15; Stop 12/16/16 at 02:16; Status DC Diltiazem HCl 10 mg 10 mg ONCE ONCE IV Last administered on 12/16/16 08:52; Start 12/16/16 at 08:15; Stop 12/16/16 at 08:31; Status DC Clindamycin Phosphate/Sodium Chloride (Cleocin Inj/NS Inj) 102 ml @ 104 mls/hr Q8H IV Last administered on 12/17/16 01:53; Start 12/16/16 at 10:00 Acetaminophen (Tylenol) 650 mg Q4H PRN PO FEVER PAIN 1-10; Start 12/16/16 at 08 :30 Diltiazem HCl 25 mg 25 mg STK-MED ONCE .ROUTE Last administered on 12/16/16 18 :57; Start 12/16/16 at 18:46; Stop 12/16/16 at 18:47; Status DC Diltiazem HCl/ Sodium Chloride (Cardizem Inj/NS Inj) 125 ml @ 0 mls/hr TITRATE IV Last administered on 12/16/16 23:38; Start 12/16/16 at 22:15 A/P Assessment and Plan A/P - cellulitis of the left leg-improving continue with IV antibiotics and pain control- keep the left leg elevated. blood cultures negative so far. will switch to po antibiotic upon discharge. -atrial fibrillation with rapid ventricular response continue with po cadizem- will try to taper off the drip. she says that she doesn't want to take ' blood thinners'. -s/p heart valve replacement- on aspirin -hypertension; resumed home meds Discharge Planning dc home later this evening or in am if HR is better controlled and off the cardizem drip. Reynold Rodriguez MD December 17, 2016 09:30
[2016-12-17] MEDS ORDERED: CLIN1CAP6 PO (09:31)
--- NOTE | 2016-12-17 09:32 | HHI.DCPOC ---
Discharge Care Plan Diagnosis: (1) Left leg cellulitis Your Health Problems Are: Inflammation Swelling Goals to Promote Your Health * To prevent worsening of your condition and complications * To maintain your health at the optimal level Directions to Meet Your Goals Take your medications as prescribed Follow your dietary instruction Follow activity as directed Keep your appointments as scheduled Take your immunizations and boosters as scheduled If your symptoms worsen call your PCP, if no PCP go to Urgent Care Center or Emergency Room Smoking is Dangerous to Your Health. Avoid second hand smoke Call the 24-hour hour crisis hotline for domestic abuse at Reynold Rodriguez MD December 17, 2016 09:32
[2016-12-17] MEDS ORDERED: DILTIAZEM HCL 30 MG TAB PO ONE (11:00)
[2016-12-17] MEDS ORDERED: CLINDAMYCIN 150 MG CAP PO SCH (12:00)
--- NOTE | 2016-12-17 15:51 | HHI.DS ---
Discharge Summary Admission Date December 15, 2016 at 19:17 Discharge Date: December 17, 2016 Admitting Diagnosis CHF exacerbation/left leg cellulitis (1) Left leg cellulitis ICD Code: L03.116 Diagnosis: Principal Procedures none Brief History - From Admission patient is a 81 y/o female with history of atrial fibrillation who presented to ER with pain and swelling of the left leg. she says that she hit her left leg with her sneaker a few days ago. she had a superficial laceration on the left leg. but she says that the the left leg started to get swollen and red and painful which got worse. she denies any fever or chills. CBC/BMP: 12/16/16 0422 12/16/16 0422 Significant Findings Laboratory Tests Test 12/15/16 12/16/16 12/16/16 18:05 04:22 05:03 Neutrophils (%) (Auto) 76.2 % 70.2 % (16.0-70.0) (16.0-70.0) Monocytes (%) (Auto) 9.1 % (0.0-8.0) 10.5 % (0.0-8.0) Estimat Glomerular Filtration 87 ML/MIN (>89) Rate Alkaline Phosphatase 166 U/L (45-117) B-Type Natriuretic Peptide 1861 PG/ML (0-100) Calcium Level 8.3 MG/DL (8.5-10.1) D-Dimer Quantitative (PE/DVT) 5.88 MG/L FEU (0.00-0.50) Imaging Last Impressions Lower Extremity Ultrasound 12/15/161754 Signed Impressions: Service Date/Time: November 18:36 - CONCLUSION: No left lower extremity DVT. Surya Cole MD Chest X-Ray 12/15/161754 Signed Impressions: Service Date/Time: November 18:12 - CONCLUSION: No acute cardiopulmonary disease. Previous median sternotomy. Compensated cardiomegaly. Surya Cole MD PE at Discharge GENERAL: This is a well-nourished, well-developed patient, in no apparent distress. CARDIOVASCULAR: Regular rate and regular rhythm without murmurs, gallops, or rubs. RESPIRATORY: Clear to auscultation. Breath sounds equal bilaterally. No wheezes , rales, or rhonchi. GASTROINTESTINAL: Abdomen soft, non-tender, nondistended. Normal, active bowel sounds MUSCULOSKELETAL: Extremities without clubbing, cyanosis, or edema. NEURO: Alert & Oriented x4 to person, place, time, situation. Moves all ext x4 skin; erythema over the left leg has much improved. Hospital Course - cellulitis of the left leg-improving continue with IV antibiotics and pain control- keep the left leg elevated. blood cultures negative so far. will switch to po antibiotic upon discharge. -atrial fibrillation with rapid ventricular response continue with po cadizem- will try to taper off the drip. she says that she doesn't want to take ' blood thinners'. -s/p heart valve replacement- on aspirin -hypertension; resumed home meds Pt Condition on Discharge: Good Discharge Disposition: Discharge Home Discharge Time: <= 30 minutes Discharge Instructions DIET: Follow Instructions for: Heart Healthy Diet Activities you can perform: Regular-No Restrictions Follow up Referrals: Cardiology PCP Follow-up New Medications: Clindamycin (Clindamycin) 300 Mg Cap 300 MG PO Q6H Infection Days 7 Ref 0 CAP Continued Medications: Aspirin (Aspirin Low Dose) 81 Mg Chew 81 MG CHEW DAILY Ref 0 TAB Diltiazem ER 12 HR (Diltiazem ER 12 HR) 120 Mg Caper 120 MG PO BID #60 Ref 0 CAP Gabapentin (Gabapentin) 100 Mg Cap 100 MG PO BID #60 Ref 0 CAP Latanoprost Opth Drops (Latanoprost Opth Drops) 0.005% Drops 1 DROP EACH EYE HS Refrigerate until opened. Glaucoma #2.5 Ref 0 ML Levothyroxine (Synthroid) 88 Mcg Tab 88 MCG PO DAILY Thyroid #30 Ref 0 TAB Metoprolol Tartrate (Lopressor) 50 Mg Tab 50 MG PO Q12HR Blood Pressure Management Days 30 TAB Timolol Opth Drops (Timolol Opth Drops) 0.5 % Soln 1 DROP EACH EYE BID Glaucoma #1 Ref 0 BOTTLE Reynold Rodriguez MD December 17, 2016 15:51
--- NOTE | 2016-12-17 15:53 | HHI.PR ---
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
--- NOTE | 2016-12-17 17:05 | EKG ---
Date Performed: 12/16/2016 Time Performed: 00:11:48 PTAGE: 81 years EKG: Atrial fibrillation with rapid ventricular response Poor R wave progression - probable norm al variant Lateral ST-T changes are nonspecific Compared to prior tracing no significant change Abnor mal ECG PREVIOUS TRACING : 12/15/2016 18.48 DOCTOR: Neno Steele Interpretating Date/Time 12/17/2016 17:04:58
== END 2016-12-17 17:40 | disposition home or self-care (01) ==
LOC: PHED 17:38 → PHEDA 19:17 → INTOOBSV 19:17 → PHICU 23:20 → PH3A 12-17 14:32
PROVIDERS: ADMIT Internal Medicine; ATTEND Internal Medicine
DX: L03.116 Cellulitis of left lower limb (principal); S81.812A Laceration without foreign body, left lower leg, initial encounter; I11.0 Hypertensive heart disease with heart failure; I50.9 Heart failure, unspecified; I48.91 Unspecified atrial fibrillation; G62.9 Polyneuropathy, unspecified; E03.9 Hypothyroidism, unspecified; W22.8XXA Striking against or struck by other objects, initial encounter; Z79.82 Long term (current) use of aspirin; Z95.2 Presence of prosthetic heart valve; Z88.5 Allergy status to narcotic agent; Z88.8 Allergy status to other drugs, medicaments and biological substances; Z88.1 Allergy status to other antibiotic agents; Z91.040 Latex allergy status; Z87.891 Personal history of nicotine dependence
CPT/HCPCS: 71010; 80048; 80053; 82550; 83605; 83880; 84484; 85025; 85379; 87040; 93005; 93971; 96365; 96366; 96367; 96375; 96376; 97162; 99285; G0378; G8987; G8988; J1940; J2543

== ENCOUNTER 2017-01-31 11:14 | Observation (INO) | payer OTHER ==
[2017-01-31] VITALS (10 sets, daily range): BP systolic 99–141; BP diastolic 73–87; PULSE 53–126; RESP 20; TEMP 95.5–97.9; O2SAT 94–98
[~2017-01-31] VITALS: Ht 175.3 cm; Wt 55.7 kg
[~2017-01-31 11:14] MED LIST changes: -ASPI1TAB69 PO; +ASPI81CH37 CHEW; -CEPH-460 PO; +CLIN1CAP6 PO; +GABA100C4 PO; -GABA300C5 PO; -MULT1TAB84 PO; +TIMO0.5S30 EACH EYE; -TIMO5SOL EACH EYE
[2017-01-31] MEDS ORDERED: DIGO0.12 PO (11:32)
[2017-01-31] MEDS ORDERED: FURO1TAB60 PO (11:44)
[2017-01-31] MEDS ORDERED: FOLI800T PO (11:44)
[2017-01-31 11:48] LABS: AUTOMATED NEUTROPHIL # 5.2 TH/MM3 (1.8-7.7); BASOPHIL # 0.1 TH/MM3 (0-0.2); BASOPHIL % 0.9 % (0.0-2.0); EOSINOPHIL # 0.1 TH/MM3 (0-0.4); EOSINOPHIL % 1.1 % (0.0-4.0); HEMATOCRIT 40.9 % (35.0-46.0); HEMO FLAGS DIFF FINAL; LYMPH % 14.8 % (9.0-44.0); MEAN CELL VOLUME 90.9 FL (80.0-100.0); MEAN CORPUSCULAR HEMOGLOBIN 29.9 PG (27.0-34.0); MEAN CORPUSCULAR HGB CONC 32.9 % (32.0-36.0); MONO % 5.1 % (0.0-8.0); NEUT % 78.1 % (16.0-70.0); PLATELET COUNT 222 TH/MM3 (150-450); RED CELL DISTRIBUTION WIDTH 16.1 % (11.6-17.2); WHITE BLOOD COUNT 6.7 TH/MM3 (4.0-11.0)
--- NOTE | 2017-01-31 11:49 | PD ---
HPI Chief Complaint: Chest Pain Time Seen by Provider: 11:37 Travel History International Travel<30 days: No Contact w/Intl Traveler<30days: No Traveled to known affect area: No History of Present Illness HPI C/O SOB, ONSET LAST NIGHT WORSENING, WORSE LAYING SUPINE, NOW DEVELOPED CHEST PRESSURE, NONRAD, 11/30, HAS NOT MISSED LASIX AND STATES H/O REPLACED VALVE, STATES NOT ON DIGOXIN NOR ON ANY ANTICOAGULANT AT THIS POINT. ...PCP IS ZAHIRA AND CARDIO IS NICKY IRWIN Past Medical History Arthritis: No Asthma: No Autoimmune Disease: No Anxiety: No Depression: No Heart Rhythm Problems: Yes (afib) Cancer: No Cardiovascular Problems: Yes High Cholesterol: No Chemotherapy: No Chest Pain: Yes (afib) Congestive Heart Failure: Yes COPD: No Cerebrovascular Accident: No Diabetes: No Endocrine: No Gastrointestinal Disorders: No GERD: No Glaucoma: Yes (BILATERAL) Genitourinary: No Hepatitis: No Hiatal Hernia: No Hypertension: No Immune Disorder: No Kidney Stones: No Musculoskeletal: Yes (need surgery on left rotator cuff) Neurologic: Yes (PERIPHERAL NEUROPATHY) Psychiatric: No Reproductive: No Respiratory: Yes Integumentary: No Migraines: No Radiation Therapy: No Renal Failure: No Seizures: No Sickle Cell Disease: No Sleep Apnea: No Thyroid Disease: Yes (HYPOTHYROID) Ulcer: No Menopausal: Yes Past Surgical History Abdominal Surgery: No AICD: No Arteriovenous Shunt: No Body Medical Devices: HERIBERTO LEFT THIGH Cardiac Surgery: Yes (cath 2 weeks ago, abalation, pig heart valve) Ear Surgery: No Endocrine Surgery: No Eye Surgery: Yes (cataract removal OU) Genitourinary Surgery: No Gynecologic Surgery: No Insulin Pump: No Joint Replacement: Yes (heriberto Left leg) Oral Surgery: No Pacemaker: No Thoracic Surgery: No Other Surgery: Yes Social History Alcohol Use: Yes (OCCASSIONAL) Tobacco Use: No (FORMER) Substance Use: No Allergies-Medications (Allergen,Severity, Reaction): Coded Allergies: Digoxin (Verified Allergy, Severe, 01/31/17) Latex (Verified Allergy, Severe, 01/31/17) rash Vancomycin (Verified Allergy, Severe, 01/31/17) Demerol (Verified Adverse Reaction, Severe, NAUSEA, 01/31/17) Reported Meds & Prescriptions Reported Meds & Active Scripts Active Reported Folic Acid 800 Mcg Tab 1,000 Mcg PO DAILY Lasix (Furosemide) 40 Mg Tab 50 Mg PO DAILY Gabapentin 100 Mg Cap 100 Mg PO BID Timolol Opth Drops 0.5 % Soln 1 Drop EACH EYE BID Aspirin Low Dose (Aspirin) 81 Mg Chew 81 Mg CHEW DAILY Synthroid (Levothyroxine Sodium) 88 Mcg Tab 88 Mcg PO DAILY Latanoprost Opth Drops (Latanoprost) 0.005% Drops 1 Drop EACH EYE HS Refrigerate until opened. Diltiazem ER 12 HR (Diltiazem HCl) 120 Mg Caper 120 Mg PO BID Review of Systems Except as stated in HPI: all other systems reviewed are Neg Cardiovascular: Positive: Chest Pain or Discomfort Respiratory: Positive: Shortness of Breath Physical Exam Narrative GENERAL: SKIN: Warm and dry. HEAD: Atraumatic. Normocephalic. EYES: Pupils equal and round. No scleral icterus. No injection or drainage. ENT: No nasal bleeding or discharge. Mucous membranes pink and moist. NECK: Trachea midline. No JVD. CARDIOVASCULAR: Regular rate and rhythm. RESPIRATORY: No accessory muscle use. Clear to auscultation. Breath sounds equal bilaterally. GASTROINTESTINAL: Abdomen soft, non-tender, nondistended. Hepatic and splenic margins not palpable. MUSCULOSKELETAL: Extremities without clubbing, cyanosis, or edema. No obvious deformities. NEUROLOGICAL: Awake and alert. No obvious cranial nerve deficits. Motor grossly within normal limits. Five out of 5 muscle strength in the arms and legs. Normal speech. PSYCHIATRIC: Appropriate mood and affect; insight and judgment normal. Data Data Last Documented VS Vital Signs Date Time Temp Pulse Resp B/P Pulse Ox O2 Delivery O2 Flow Rate FiO2 01/31/17 12:16 73 20 103/73 95 99/75 01/31/17 11:28 97.9 Orders Electrocardiogram (01/31/17 11:24) B-Type Natriuretic Peptide (01/31/17 11:24) Ckmb (Isoenzyme) Profile (01/31/17 11:24) Complete Blood Count With Diff (01/31/17 11:24) Comprehensive Metabolic Panel (01/31/17 11:24) Digoxin (01/31/17 11:24) Prothrombin Time / Inr (Pt) (01/31/17 11:24) Act Partial Throm Time (Ptt) (01/31/17 11:24) Troponin I (01/31/17 11:24) Chest, Single Ap (01/31/17 11:24) Ecg Monitoring (01/31/17 11:24) Bilateral Bp Monitoring (01/31/17 11:24) Iv Access Insert/Monitor (01/31/17 11:24) Oximetry (01/31/17 11:24) Admit Order (Ed Use Only) (01/31/17 13:00) Labs Laboratory Tests Test 01/31/17 01/31/17 11:00 12:10 White Blood Count 6.7 TH/MM3 Red Blood Count 4.50 MIL/MM3 Hemoglobin 13.5 GM/DL Hematocrit 40.9 % Mean Corpuscular Volume 90.9 FL Mean Corpuscular Hemoglobin 29.9 PG Mean Corpuscular Hemoglobin 32.9 % Concent Red Cell Distribution Width 16.1 % Platelet Count 222 TH/MM3 Mean Platelet Volume 8.3 FL Neutrophils (%) (Auto) 78.1 % Lymphocytes (%) (Auto) 14.8 % Monocytes (%) (Auto) 5.1 % Eosinophils (%) (Auto) 1.1 % Basophils (%) (Auto) 0.9 % Neutrophils # (Auto) 5.2 TH/MM3 Lymphocytes # (Auto) 1.0 TH/MM3 Monocytes # (Auto) 0.3 TH/MM3 Eosinophils # (Auto) 0.1 TH/MM3 Basophils # (Auto) 0.1 TH/MM3 CBC Comment DIFF FINAL Differential Comment Prothrombin Time 13.1 SEC Prothromb Time International 1.2 RATIO Ratio Activated Partial 22.8 SEC Thromboplast Time B-Type Natriuretic Peptide 2928 PG/ML Sodium Level 142 MEQ/L Potassium Level 3.8 MEQ/L Chloride Level 106 MEQ/L Carbon Dioxide Level 30.0 MEQ/L Anion Gap 6 MEQ/L Blood Urea Nitrogen 15 MG/DL Creatinine 0.74 MG/DL Estimat Glomerular Filtration 75 ML/MIN Rate Random Glucose 100 MG/DL Calcium Level 8.8 MG/DL Total Bilirubin 0.7 MG/DL Aspartate Amino Transf 30 U/L (AST/SGOT) Alanine Aminotransferase 24 U/L (ALT/SGPT) Alkaline Phosphatase 119 U/L Total Creatine Kinase 56 U/L Troponin I 0.04 NG/ML Total Protein 6.7 GM/DL Albumin 3.5 GM/DL MDM Medical Decision Making Medical Screen Exam Complete: Yes Emergency Medical Condition: Yes Medical Record Reviewed: Yes Interpretation(s) AFIB WITH CVR, NO STEMI PATTERN, NONSPEC STT CHANGES AND INVERTED T WAVES ON V5/ V6 Differential Diagnosis PNA V PULM EDEMA V FL V NONSTEMI Narrative Course PATIENT VSS, FINDINGS C/W CHF, WILL ADMIT FOR CHF AND R/O FL Diagnosis Primary Impression: CP R/O FL Additional Impression: CHF EXACERBATION Admitting Information Admitting Physician Requests: Observation Moshe Mcdowell MD Jan 31, 2017 11:49
[2017-01-31 12:03] LABS: APTT (PATIENT) 22.8 SEC (24.3-30.1); INTERNATIONAL NORMALIZED RATIO 1.2 RATIO; PROTHROMBIN TIME - PATIENT 13.1 SEC (9.8-11.6)
[2017-01-31 12:26] LABS: CHLORIDE 106 MEQ/L (98-107); POTASSIUM 3.8 MEQ/L (3.5-5.1); SODIUM (NA) 142 MEQ/L (136-145)
[2017-01-31 12:29] LABS: ANION GAP 6 MEQ/L (5-15); BLOOD UREA NITROGEN 15 MG/DL (7-18)
[2017-01-31 12:32] LABS: ALT (GPT) 24 U/L (10-53); AST (GOT) 30 U/L (15-37); GLOMERULAR FILTRATION RATE 75 ML/MIN (>89)
[2017-01-31 12:34] LABS: TOTAL BILIRUBIN ADULT 0.7 MG/DL (0.2-1.0)
[2017-01-31 12:35] LABS: ALKALINE PHOSPHATASE 119 U/L (45-117)
--- NOTE | 2017-01-31 12:40 | RADRPT ---
EXAM DATE/TIME: 01/31/2017 11:46 [facility] COMPARISON: CHEST SINGLE AP, December 15, 2016, 18:12. INDICATIONS : Shortness of breath. MEDICAL HISTORY : Congestive heart failure. Afib. SURGICAL HISTORY : Pacemaker. Mitral valve replacement. Cath. Ablation. ENCOUNTER: Initial ACUITY: 3 weeks PAIN SCORE: 5/10 LOCATION: Bilateral chest FINDINGS: The heart is enlarged. The patient is post median sternotomy and valvular replacement. There is a tra nsvenous pacer in place. There are small bilateral effusions. There is interstitial prominence. The e xam which suggest mild congestive failure. This appears worse when compared to previous of 12/15/16. CONCLUSION: 1. Probable mild CHF. Please see above. Saeid Jurado MD on January 31, 2017 at 12:37 Board Certified Radiologist. This report was verified electronically.
[2017-01-31 12:41] LABS: CREATINE KINASE 56 U/L (26-192)
[2017-01-31] MEDS ORDERED: NITROGLYCERIN 2% OINT 1 GM PACKET TOPICAL ONE (13:15)
[2017-01-31] MEDS ORDERED: FUROSEMIDE 100 MG/10 ML VIAL IVP ONE (13:15)
[2017-01-31 13:19] LABS: DIGOXIN 0.4 NG/ML (0.8-2.0)
[2017-01-31] MEDS ORDERED: SODIUM CHLORIDE 0.9% FLUSH 10 ML FLUSH IV FLUSH PRN (13:30)
[2017-01-31] MEDS ORDERED: NITROGLYCERIN 0.4 MG SL 25 TABS/BTL SL PRN (14:00)
[2017-01-31] MEDS ORDERED: MAGNESIUM HYDROXIDE SUSP 30 ML CUP PO PRN (14:00)
[2017-01-31] MEDS ORDERED: TEMAZEPAM 15 MG CAP PO PRN (14:00)
[2017-01-31] MEDS ORDERED: SENNOSIDES 8.6 MG TAB PO PRN (14:00)
[2017-01-31] MEDS ORDERED: LACTULOSE SYRUP 20 GM/30 ML CUP PO PRN (14:00)
[2017-01-31] MEDS ORDERED: BISACODYL 10 MG SUPP RECTAL PRN (14:00)
[2017-01-31] MEDS ORDERED: ONDANSETRON HCL 4 MG/2 ML VIAL IVP PRN (14:00)
[2017-01-31] MEDS ORDERED: ACETAMINOPHEN 325 MG TAB PO PRN (14:00)
[2017-01-31] MEDS ORDERED: ENOXAPARIN SODIUM 40 MG/0.4 ML SYRINGE SQ SCH (14:00)
--- NOTE | 2017-01-31 15:03 | HHI.HP ---
[facility] Service [facility] Hospitalists Primary Care Physician Mark Zuluaga MD Admission Diagnosis CHF EXAC, CP R/O TX Diagnoses: Chief Complaint: sob, chest pain Travel History International Travel<30 Days: No Contact w/Intl Traveler <30 Da: No Traveled to Known Affected Are: No History of Present Illness 81 y/o female with history of atrial fibrillation who presented to ER with complaints of chest pain and sob. Chest pain is radiating to her left arm, is intermittent severe 10/10 on admission improved by nitropaste placed in the ED. Patient complains of associated sob and she is noted dessating with ambulation . She has associated LE edema. No n/v/d/c. No lightheadedness. No cough , fever or chills. Review of Systems Except as stated in HPI: all other systems reviewed are Neg Past Family Social History Past Medical History atrial fibrillation hypertension Aortic heart valve disease Past Surgical History Aortic valve replacement Ablation for A. fib CABG Reported Medications Reported Meds & Active Scripts Active Reported Folic Acid 800 Mcg Tab 1,000 Mcg PO DAILY Lasix (Furosemide) 40 Mg Tab 50 Mg PO DAILY Gabapentin 100 Mg Cap 100 Mg PO BID Timolol Opth Drops 0.5 % Soln 1 Drop EACH EYE BID Aspirin Low Dose (Aspirin) 81 Mg Chew 81 Mg CHEW DAILY Synthroid (Levothyroxine Sodium) 88 Mcg Tab 88 Mcg PO DAILY Latanoprost Opth Drops (Latanoprost) 0.005% Drops 1 Drop EACH EYE HS Refrigerate until opened. Diltiazem ER 12 HR (Diltiazem HCl) 120 Mg Caper 120 Mg PO BID Allergies: Coded Allergies: Digoxin (Verified Allergy, Severe, 01/31/17) Latex (Verified Allergy, Severe, 01/31/17) rash Vancomycin (Verified Allergy, Severe, 01/31/17) Demerol (Verified Adverse Reaction, Severe, NAUSEA, 01/31/17) Family History Heart problems runs in her family both parents. Mother at the age of 82 and father is 72 years of age Social History Doesn't smoke,drinks occasionally a glass a wine. No illicit drug use. Physical Exam Vital Signs Vital Signs Date Time Temp Pulse Resp B/P Pulse Ox O2 Delivery O2 Flow Rate FiO2 01/31/17 13:57 77 20 118/80 97 01/31/17 13:08 71 20 106/76 96 01/31/17 12:16 73 20 103/73 95 99/75 01/31/17 11:44 96 01/31/17 11:28 97.9 78 20 122/76 96 Physical Exam GENERAL: This is a well-nourished, well-developed patient, in no apparent distress. SKIN: No rashes, ecchymoses or lesions. Cool and dry. HEAD: Atraumatic. Normocephalic. No temporal or scalp tenderness. EYES: Pupils equal round and reactive. Extraocular motions intact. No scleral icterus. No injection or drainage. ENT: Nose without bleeding, purulent drainage or septal hematoma. Throat without erythema, tonsillar hypertrophy or exudate. Uvula midline. Airway patent. NECK: Trachea midline. No JVD or lymphadenopathy. Supple, nontender, no meningeal signs. CARDIOVASCULAR: Regular rate and rhythm without murmurs, gallops, or rubs. RESPIRATORY: Clear to auscultation. Breath sounds equal bilaterally. No wheezes , rales, or rhonchi. GASTROINTESTINAL: Abdomen soft, non-tender, nondistended. No hepato-splenomegaly , or palpable masses. No guarding. MUSCULOSKELETAL: Extremities without clubbing, cyanosis, or edema. No joint tenderness, effusion, or edema noted. No calf tenderness. Negative Homans sign bilaterally. NEUROLOGICAL: Awake and alert. Cranial nerves II through XII intact. Motor and sensory grossly within normal limits. Five out of 5 muscle strength in all muscle groups. Normal speech. Laboratory Laboratory Tests Test 01/31/17 01/31/17 11:00 12:10 White Blood Count 6.7 Red Blood Count 4.50 Hemoglobin 13.5 Hematocrit 40.9 Mean Corpuscular Volume 90.9 Mean Corpuscular Hemoglobin 29.9 Mean Corpuscular Hemoglobin 32.9 Concent Red Cell Distribution Width 16.1 Platelet Count 222 Mean Platelet Volume 8.3 Neutrophils (%) (Auto) 78.1 Lymphocytes (%) (Auto) 14.8 Monocytes (%) (Auto) 5.1 Eosinophils (%) (Auto) 1.1 Basophils (%) (Auto) 0.9 Neutrophils # (Auto) 5.2 Lymphocytes # (Auto) 1.0 Monocytes # (Auto) 0.3 Eosinophils # (Auto) 0.1 Basophils # (Auto) 0.1 CBC Comment DIFF FINAL Differential Comment Prothrombin Time 13.1 Prothromb Time International 1.2 Ratio Activated Partial 22.8 Thromboplast Time B-Type Natriuretic Peptide 2928 Sodium Level 142 Potassium Level 3.8 Chloride Level 106 Carbon Dioxide Level 30.0 Anion Gap 6 Blood Urea Nitrogen 15 Creatinine 0.74 Estimat Glomerular Filtration 75 Rate Random Glucose 100 Calcium Level 8.8 Total Bilirubin 0.7 Aspartate Amino Transf 30 (AST/SGOT) Alanine Aminotransferase 24 (ALT/SGPT) Alkaline Phosphatase 119 Total Creatine Kinase 56 Troponin I 0.04 Total Protein 6.7 Albumin 3.5 Digoxin Level 0.4 Result Diagram: 01/31/17 1100 01/31/17 1210 Assessment and Plan Assessment and Plan CHF with exacerbation Chest pain Trop is neg x1 will trend. Nitropaste for pain control Her cardiology Dr is Dr Silva. Consult his cardiology Received 60 mg IV Lasix in the emergency room by IV. Patient already to 40 mg Lasix at home. Start lasix 40 mg po bid tomorrow Monitor closely kidney function as patient is on lasix and might lead to kidney failure Monitor UOP closely Atrial fibrillation controlled rate at this time. Continue home meds. Monitor. S/p heart valve replacement- on aspirin Hypertension: resume home meds DVT ppx scd .teds Discussed Condition With patient,. nurse, ED physician Khushboo Haas MD Jan 31, 2017 15:03
[2017-01-31] MEDS ORDERED: FUROSEMIDE 40 MG/4 ML VIAL IV PUSH SCH (18:00)
[2017-01-31] MEDS: DILTIAZEM-CD 120 MG CAP ER PO SCH (20:46)
[2017-01-31] MEDS: GABAPENTIN 100 MG CAP PO SCH (20:46)
[2017-01-31] MEDS: SODIUM CHLORIDE 0.9% FLUSH 10 ML FLUSH IV FLUSH SCH (20:47)
[2017-01-31] MEDS: TIMOLOL MALEATE 0.5% OPHT SOLN 5 ML BTL EACH EYE SCH (20:47)
[2017-01-31] MEDS: DOCUSATE SODIUM 50 MG/SENNA 8.6 MG TAB PO SCH (20:47)
[2017-01-31] MEDS ORDERED: LATANOPROST 0.005% OPHT SOLN 2.5 ML BTL EACH EYE SCH (21:00)
--- NOTE | 2017-01-31 21:30 | EKG ---
Date Performed: 01/31/2017 Time Performed: 19:03:32 PTAGE: 81 years EKG: ATRIAL FIBRILLATION ST DEVIATION AND MODERATE T-WAVE ABNORMALITY ABNORMAL ECG PREVIOUS TRACING : 01/31/2017 15.26 Compared to prior tracing no significant change DOCTOR: Mario Quintero Interpretating Date/Time 01/31/2017 21:29:33
--- NOTE | 2017-01-31 22:00 | EKG ---
Date Performed: 01/31/2017 Time Performed: 15:26:12 PTAGE: 81 years EKG: ATRIAL FIBRILLATION WITH ABERRANT CONDUCTION OR VENTRICULAR PREMATURE COMPLEXES MINIMAL VOL TAGE CRITERIA FOR LVH, CONSIDER NORMAL VARIANT ST DEVIATION AND MODERATE T-WAVE ABNORMALITY ABNORMAL ECG PREVIOUS TRACING : 01/31/2017 11.31 Compared to prior tracing no significant change DOCTOR: Mario Quintero Interpretating Date/Time 01/31/2017 21:58:55
[2017-02-01] VITALS: BP 121/97; PULSE 117; RESP 20; TEMP 96.6; O2SAT 95
[2017-02-01 04:00] VITALS: BP 120/90; PULSE 108; RESP 20; TEMP 96.4; O2SAT 94
[2017-02-01] MEDS ORDERED: LEVOTHYROXINE SODIUM 88 MCG TAB PO SCH (06:00)
[2017-02-01 06:40] LABS: AUTOMATED NEUTROPHIL # 3.8 TH/MM3 (1.8-7.7); BASOPHIL % 0.6 % (0.0-2.0); EOSINOPHIL # 0.2 TH/MM3 (0-0.4); EOSINOPHIL % 3.3 % (0.0-4.0); HEMATOCRIT 39.3 % (35.0-46.0); HEMO FLAGS DIFF FINAL; LYMPH % 26.8 % (9.0-44.0); LYMPHOCYTE # 1.6 TH/MM3 (1.0-4.8); MEAN CELL VOLUME 89.9 FL (80.0-100.0); MEAN CORPUSCULAR HEMOGLOBIN 29.5 PG (27.0-34.0); MEAN CORPUSCULAR HGB CONC 32.8 % (32.0-36.0); MONO % 8.7 % (0.0-8.0); NEUT % 60.6 % (16.0-70.0); PLATELET COUNT 178 TH/MM3 (150-450); RED BLOOD COUNT 4.37 MIL/MM3 (4.00-5.30); RED CELL DISTRIBUTION WIDTH 15.7 % (11.6-17.2); WHITE BLOOD COUNT 6.1 TH/MM3 (4.0-11.0)
[2017-02-01 06:47] LABS: CHLORIDE 105 MEQ/L (98-107); POTASSIUM 3.5 MEQ/L (3.5-5.1); SODIUM (NA) 143 MEQ/L (136-145)
[2017-02-01 06:56] LABS: ANION GAP 8 MEQ/L (5-15); BICARBONATE 29.6 MEQ/L (21.0-32.0); BLOOD UREA NITROGEN 14 MG/DL (7-18)
[2017-02-01 06:57] LABS: ALT (GPT) 21 U/L (10-53); AST (GOT) 30 U/L (15-37)
[2017-02-01 06:58] LABS: TOTAL BILIRUBIN ADULT 0.7 MG/DL (0.2-1.0)
[2017-02-01 06:59] LABS: ALKALINE PHOSPHATASE 107 U/L (45-117); GLOMERULAR FILTRATION RATE 97 ML/MIN (>89)
[2017-02-01 08:00] VITALS: BP 145/87; PULSE 79; RESP 18; TEMP 97.5; O2SAT 98
--- NOTE | 2017-02-01 08:12 | HHI.PR ---
Subjective Remarks Feels much better, ambulates , satting well on room air. Has a good UOP. Feels much better and is comfortable to go home. Has lasix at home. No cough Objective Vitals Vital Signs Date Time Temp Pulse Resp B/P Pulse Ox O2 Delivery O2 Flow Rate FiO2 02/01/17 04:00 96.4 108 20 120/90 94 02/01/17 00:00 96.6 117 20 121/97 95 01/31/17 21:12 126 01/31/17 20:00 95.5 100 20 135/87 97 01/31/17 18:30 96.9 53 20 101/78 98 01/31/17 15:54 87 20 111/76 94 01/31/17 14:59 94 20 141/80 94 01/31/17 13:57 77 20 118/80 97 01/31/17 13:08 71 20 106/76 96 01/31/17 12:16 73 20 103/73 95 99/75 01/31/17 11:44 96 01/31/17 11:28 97.9 78 20 122/76 96 I/O 01/31/17 01/31/17 01/31/17 02/01/17 02/01/17 02/01/17 07:00 15:00 23:00 07:00 15:00 23:00 Intake Total 480 ml Balance 480 ml Intake Oral 480 ml # Bowel Movements 1 Result Diagram: 02/01/17 0520 02/01/17 0520 Imaging Last Impressions Chest X-Ray 01/31/17 1124 Signed Impressions: Service Date/Time: Tuesday, January 31, 2017 11:46 - CONCLUSION: 1. Probable mild CHF. Please see above. Saeid Jurado MD Objective Remarks GENERAL: This is a well-nourished, well-developed patient, in no apparent distress. CARDIOVASCULAR: Regular rate and rhythm without murmurs, gallops, or rubs. RESPIRATORY: Clear to auscultation. Breath sounds equal bilaterally. No wheezes , rales, or rhonchi. GASTROINTESTINAL: Abdomen soft, non-tender, nondistended. No hepato-splenomegaly , or palpable masses. No guarding. MUSCULOSKELETAL: Extremities without clubbing, cyanosis, or edema. No joint tenderness, effusion, or edema noted. No calf tenderness. Negative Homans sign bilaterally. NEUROLOGICAL: Awake and alert. Cranial nerves II through XII intact. Motor and sensory grossly within normal limits. Five out of 5 muscle strength in all muscle groups. Normal speech. A/P Assessment and Plan CHF with exacerbation Chest pain Trop is neg x1 will trend. Nitropaste for pain control Her cardiology Dr is Dr Silva. Consult his cardiology Received 60 mg IV Lasix in the emergency room by IV. Patient already to 40 mg Lasix at home. Continue lasix 40 mg IV bid Monitor closely kidney function as patient is on lasix and might lead to kidney failure Monitor UOP closely Atrial fibrillation controlled rate at this time. Continue home meds. Monitor. S/p heart valve replacement- on aspirin Hypertension: resume home meds DVT ppx scd .teds Discussed Condition With patient, nurse Discharge Planning DC home in stable condition. Follow-up as outpatient with PCP in the consultants. Medications per medication reconciliation. Activity ambulate as tolerated Diet healthy heart diet Khushboo Haas MD Feb 01, 2017 08:12
[2017-02-01] MEDS: TIMOLOL MALEATE 0.5% OPHT SOLN 5 ML BTL EACH EYE SCH (09:00)
[2017-02-01] MEDS ORDERED: FUROSEMIDE 40 MG/4 ML VIAL IV PUSH SCH (09:00)
[2017-02-01] MEDS ORDERED: ASPIRIN 81 MG CHEW TAB CHEW SCH (09:00)
[2017-02-01] MEDS ORDERED: POTASSIUM CHLORIDE 20 MEQ CONTROLLED RELEASE TAB PO SCH (09:00)
[2017-02-01] MEDS ORDERED: FOLIC ACID 1 MG TAB PO SCH (09:00)
[2017-02-01] MEDS: DILTIAZEM-CD 120 MG CAP ER PO SCH (09:26)
[2017-02-01] MEDS: DOCUSATE SODIUM 50 MG/SENNA 8.6 MG TAB PO SCH (09:27)
[2017-02-01] MEDS: GABAPENTIN 100 MG CAP PO SCH (09:27)
[2017-02-01] MEDS: SODIUM CHLORIDE 0.9% FLUSH 10 ML FLUSH IV FLUSH SCH (09:27)
--- NOTE | 2017-02-01 10:08 | HHI.DCPOC ---
Discharge Care Plan Goals to Promote Your Health * To prevent worsening of your condition and complications * To maintain your health at the optimal level Directions to Meet Your Goals Take your medications as prescribed Follow your dietary instruction Follow activity as directed Keep your appointments as scheduled Take your immunizations and boosters as scheduled If your symptoms worsen call your PCP, if no PCP go to Urgent Care Center or Emergency Room Smoking is Dangerous to Your Health. Avoid second hand smoke Call the 24-hour hour crisis hotline for domestic abuse at Khushboo Haas MD Feb 01, 2017 10:08
--- NOTE | 2017-02-01 17:14 | EKG ---
Date Performed: 01/31/2017 Time Performed: 11:31:51 PTAGE: 81 years EKG: ATRIAL FIBRILLATION ST DEVIATION AND MODERATE T-WAVE ABNORMALITY ABNORMAL ECG PREVIOUS TRACING : 12/16/2016 00.11 Compared to the previous tracing rate slower DOCTOR: Mario Quintero Interpretating Date/Time 02/01/2017 17:13:51
== END 2017-02-01 11:40 | disposition home or self-care (01) ==
LOC: PHED 11:14 → PHEDA 13:01 → INTOOBSV 13:01 → PH3B 17:59
PROVIDERS: ADMIT Hospitalist; ATTEND Hospitalist
DX: I11.0 Hypertensive heart disease with heart failure (principal); I50.9 Heart failure, unspecified; I48.91 Unspecified atrial fibrillation; I25.10 Atherosclerotic heart disease of native coronary artery without angina pectoris; G62.9 Polyneuropathy, unspecified; H40.9 Unspecified glaucoma; Z95.1 Presence of aortocoronary bypass graft; E03.9 Hypothyroidism, unspecified; Z87.891 Personal history of nicotine dependence; Z95.2 Presence of prosthetic heart valve; Z79.82 Long term (current) use of aspirin; Z79.01 Long term (current) use of anticoagulants; Z79.899 Other long term (current) drug therapy; R94.31 Abnormal electrocardiogram [ECG] [EKG]
CPT/HCPCS: 71010; 80053; 80162; 82550; 83880; 84484; 85025; 85610; 85730; 93005; 97161; 99285; G0378; G8987; G8988; J1650; J1940

== ENCOUNTER 2017-11-12 08:14 | Emergency (ER) | payer OTHER ==
[~2017-11-12 08:14] MED LIST changes: -ASPI81CH37 CHEW; +ASPI81CH6 CHEW; -CLIN1CAP6 PO; +FOLI800T PO; +FURO1TAB60 PO; -METO-309 PO
[2017-11-12 08:15] VITALS: O2SAT 98
[2017-11-12 08:16] VITALS: PULSE 165; RESP 20; TEMP 97.9; O2SAT 98
[2017-11-12 08:26] VITALS: BP 119/105; PULSE 146; RESP 18; O2SAT 98
[2017-11-12] MEDS ORDERED: SODIUM CHLORID 0.9% 500 ML INJ 500 ML IV ONE (08:30)
[2017-11-12] MEDS ORDERED: SODIUM CHLORIDE 0.9% FLUSH 10 ML FLUSH IVF PRN (08:30)
[2017-11-12] MEDS ORDERED: DILTIAZEM HCL 25 MG/5 ML VIAL IV ONE (08:30)
--- NOTE | 2017-11-12 08:30 | PD ---
HPI Chief Complaint: Cardiac Complaint Time Seen by Provider: 08:23 Travel History International Travel<30 days: No Contact w/Intl Traveler<30days: No Traveled to known affect area: No History of Present Illness HPI Patient presents with complaints of mild shortness of breath since last night. No history of COPD. History of atrial fibrillation. Cardiology / Dr Alonso. Compliant with diltiazem 120 mg twice daily. Reports a rapid heart rate. Denies any specific chest pain urinary or bowel symptoms. History of bovine valve replacement. Compliant with aspirin. PFSH Past Medical History Hx Anticoagulant Therapy: Yes Arthritis: No Asthma: No Autoimmune Disease: No Anxiety: No Depression: No Heart Rhythm Problems: Yes (afib) Cancer: No Cardiovascular Problems: Yes High Cholesterol: No Chemotherapy: No Chest Pain: Yes (afib) Congestive Heart Failure: Yes COPD: No Cerebrovascular Accident: No Diabetes: No Endocrine: No Gastrointestinal Disorders: No GERD: No Glaucoma: Yes (BILATERAL) Genitourinary: No Hepatitis: No Hiatal Hernia: No Hypertension: No Immune Disorder: No Kidney Stones: No Musculoskeletal: Yes (need surgery on left rotator cuff) Neurologic: Yes (PERIPHERAL NEUROPATHY) Psychiatric: No Reproductive: No Respiratory: Yes Integumentary: No Migraines: No Radiation Therapy: No Renal Failure: No Seizures: No Sickle Cell Disease: No Sleep Apnea: No Thyroid Disease: Yes (HYPOTHYROID) Ulcer: No ?: Not Menopausal: Yes Past Surgical History Abdominal Surgery: No AICD: No Arteriovenous Shunt: No Body Medical Devices: HERIBERTO LEFT THIGH Cardiac Surgery: Yes (cath , abalation, pig heart valve) Ear Surgery: No Endocrine Surgery: No Eye Surgery: Yes (cataract removal OU) Genitourinary Surgery: No Gynecologic Surgery: No Insulin Pump: No Joint Replacement: Yes (heriberto Left leg) Oral Surgery: No Pacemaker: No Thoracic Surgery: No Other Surgery: Yes Social History Alcohol Use: Yes (OCCASSIONAL) Tobacco Use: No (FORMER) Substance Use: No Allergies-Medications (Allergen,Severity, Reaction): Coded Allergies: digoxin (Unverified Allergy, Severe, 11/12/17) latex (Unverified Allergy, Severe, 11/12/17) rash vancomycin (Unverified Allergy, Severe, 11/12/17) meperidine (Unverified Adverse Reaction, Severe, NAUSEA, 11/12/17) Reported Meds & Prescriptions Reported Meds & Active Scripts Active Diltiazem ER 12 HR (Diltiazem HCl) 60 Mg Caper 60 Mg PO BID Reported Vitamin C Sr (Ascorbic Acid) 500 Mg Caper 3,000 Mg PO B Complex (B-Complex Vitamins) 1 Cap 1 Cap PO DAILY Lasix (Furosemide) 40 Mg Tab 30 Mg PO DAILY Gabapentin 100 Mg Cap 100 Mg PO BID Timolol Opth Drops 0.5 % Soln 1 Drop EACH EYE BID Aspirin Low Dose (Aspirin) 81 Mg Chew 81 Mg CHEW DAILY Synthroid (Levothyroxine Sodium) 88 Mcg Tab 88 Mcg PO DAILY Latanoprost Opth Drops (Latanoprost) 0.005% Drops 1 Drop EACH EYE HS Refrigerate until opened. Diltiazem ER 12 HR (Diltiazem HCl) 120 Mg Caper 120 Mg PO BID Review of Systems Cardiovascular: Positive: Irregular Rhythm, Tachycardia Respiratory: Positive: Shortness of Breath Physical Exam Narrative GENERAL: Well-nourished, well-developed patient. SKIN: Focused skin assessment warm/dry. HEAD: Normocephalic. EYES: No scleral icterus. No injection or drainage. NECK: Supple, trachea midline. No JVD or lymphadenopathy. CARDIOVASCULAR: Irregular rhythm tachycardic without murmurs, gallops, or rubs. RESPIRATORY: Breath sounds equal bilaterally. No accessory muscle use. GASTROINTESTINAL: Abdomen soft, non-tender, nondistended. MUSCULOSKELETAL: No cyanosis, or edema. BACK: Nontender without obvious deformity. No CVA tenderness. Data Data Last Documented VS Vital Signs Date Time Temp Pulse Resp B/P (MAP) Pulse Ox O2 Delivery O2 Flow Rate FiO2 11/12/17 09:33 86 18 110/76 (87) 97 Room Air 11/12/17 08:16 97.9 Orders Orders Electrocardiogram (11/12/17 08:23) Basic Metabolic Panel (Bmp) (11/12/17 08:23) Ckmb (Isoenzyme) Profile (11/12/17 08:23) Complete Blood Count With Diff (11/12/17 08:23) D-Dimer (11/12/17 08:23) Magnesium (Mg) (11/12/17 08:23) Prothrombin Time / Inr (Pt) (11/12/17 08:23) Act Partial Throm Time (Ptt) (11/12/17 08:23) Troponin I (11/12/17 08:23) Ecg Monitoring (11/12/17 08:23) Bilateral Bp Monitoring (11/12/17 08:23) Iv Access Insert/Monitor (11/12/17 08:23) Oximetry (11/12/17 08:23) Oxygen Administration (11/12/17 08:23) Sodium Chloride 0.9% Flush (Ns Flush) (11/12/17 08:30) Diltiazem Inj (Cardizem Inj) (11/12/17 08:30) Sodium Chlorid 0.9% 500 Ml Inj (Ns 500 M (11/12/17 08:30) Chest, Single Ap (11/12/17 08:23) Electrocardiogram (11/12/17 ) Labs Laboratory Tests Test 11/12/17 08:17 White Blood Count 10.5 TH/MM3 Red Blood Count 4.38 MIL/MM3 Hemoglobin 13.7 GM/DL Hematocrit 42.6 % Mean Corpuscular Volume 97.3 FL Mean Corpuscular Hemoglobin 31.4 PG Mean Corpuscular Hemoglobin Concent 32.3 % Red Cell Distribution Width 15.8 % Platelet Count 194 TH/MM3 Mean Platelet Volume 8.1 FL Neutrophils (%) (Auto) 77.5 % Lymphocytes (%) (Auto) 13.1 % Monocytes (%) (Auto) 7.7 % Eosinophils (%) (Auto) 0.9 % Basophils (%) (Auto) 0.8 % Neutrophils # (Auto) 8.1 TH/MM3 Lymphocytes # (Auto) 1.4 TH/MM3 Monocytes # (Auto) 0.8 TH/MM3 Eosinophils # (Auto) 0.1 TH/MM3 Basophils # (Auto) 0.1 TH/MM3 CBC Comment DIFF FINAL Differential Comment Prothrombin Time 11.0 SEC Prothromb Time International Ratio 1.1 RATIO Activated Partial Thromboplast Time 24.4 SEC D-Dimer Quantitative (PE/DVT) 2.42 MG/L FEU Blood Urea Nitrogen 16 MG/DL Creatinine 0.75 MG/DL Random Glucose 109 MG/DL Calcium Level 9.4 MG/DL Magnesium Level 2.9 MG/DL Sodium Level 140 MEQ/L Potassium Level 3.8 MEQ/L Chloride Level 106 MEQ/L Carbon Dioxide Level 27.2 MEQ/L Anion Gap 7 MEQ/L Estimat Glomerular Filtration Rate 74 ML/MIN Total Creatine Kinase 49 U/L Troponin I 0.03 NG/ML [facility] Medical Decision Making Medical Screen Exam Complete: Yes Emergency Medical Condition: Yes Differential Diagnosis Uncontrolled A. fib, acute coronary syndrome, pulmonary embolism Narrative Course Assessment plan discussed with patient at bedside. Initial EKG atrial fibrillation with RVR rate 155. Patient received Cardizem 20 mg IV as well as normal saline with improvement of rate. Repeat EKG reveals A. fib rate of 92. Patient reports significant improvement in her shortness of breath. Cardiac enzymes are negative. Diagnosis Primary Impression: Atrial fibrillation with RVR Patient Instructions: General Instructions Additional Instructions: Encouraged to increase fluid intake. Encouraged a blood pressure log for evaluation at follow-up. Encouraged to continue diltiazem 120 mg twice daily with addition of diltiazem 60 mg twice daily. Follow-up with country director. Return to emergency room with any onset of new symptoms. Med/Other Pt SpecificInfo: Prescription(s) given Scripts Diltiazem ER 12 HR (Diltiazem ER 12 HR) 60 Mg Caper 60 MG PO BID, #60 CAP 0 Refills Prov: Piyush Hammonds MD 11/12/17 Disposition: 01 DISCHARGE HOME Condition: Good Piyush Hammonds MD Nov 12, 2017 08:30
[2017-11-12 08:40] VITALS: BP 100/67; PULSE 85; RESP 18; O2SAT 96
[2017-11-12 08:47] LABS: AUTOMATED NEUTROPHIL # 8.1 TH/MM3 (1.8-7.7); BASOPHIL # 0.1 TH/MM3 (0-0.2); BASOPHIL % 0.8 % (0.0-2.0); EOSINOPHIL # 0.1 TH/MM3 (0-0.4); EOSINOPHIL % 0.9 % (0.0-4.0); HEMATOCRIT 42.6 % (35.0-46.0); HEMOGLOBIN 13.7 GM/DL (11.6-15.3); LYMPH % 13.1 % (9.0-44.0); LYMPHOCYTE # 1.4 TH/MM3 (1.0-4.8); MEAN CELL VOLUME 97.3 FL (80.0-100.0); MEAN CORPUSCULAR HEMOGLOBIN 31.4 PG (27.0-34.0); MEAN CORPUSCULAR HGB CONC 32.3 % (32.0-36.0); MEAN PLATELET VOLUME 8.1 FL (7.0-11.0); MONO % 7.7 % (0.0-8.0); MONOCYTE # 0.8 TH/MM3 (0-0.9); NEUT % 77.5 % (16.0-70.0); PLATELET COUNT 194 TH/MM3 (150-450); RED BLOOD COUNT 4.38 MIL/MM3 (4.00-5.30); RED CELL DISTRIBUTION WIDTH 15.8 % (11.6-17.2); WHITE BLOOD COUNT 10.5 TH/MM3 (4.0-11.0)
[2017-11-12] MEDS ORDERED: VITA500C18 PO (08:49)
[2017-11-12] MEDS ORDERED: VITACAP7 PO (08:49)
[2017-11-12 08:53] VITALS: BP_SYST 108; BP_SYST 119; BP_DIAS 72; BP_DIAS 73; PULSE 81
[2017-11-12 08:56] LABS: CALCIUM 9.4 MG/DL (8.5-10.1)
[2017-11-12 08:57] LABS: BICARBONATE 27.2 MEQ/L (21.0-32.0); MAGNESIUM 2.9 MG/DL (1.5-2.5)
[2017-11-12 09:00] LABS: CREATININE 0.75 MG/DL (0.50-1.00)
--- NOTE | 2017-11-12 09:02 | RADRPT ---
EXAM DATE/TIME: 11/12/2017 08:35 [facility] COMPARISON: CHEST SINGLE AP, January 31, 2017, 11:46. INDICATIONS : Short of breath, chest pains MEDICAL HISTORY : Congestive heart failure. a fib SURGICAL HISTORY : Pacemaker. valve replacement ENCOUNTER: Initial ACUITY: 2 days PAIN SCORE: 6/10 LOCATION: Bilateral chest FINDINGS: A single AP erect portable view of the chest was obtained and again demonstrate that the patient is s tatus post median sternotomy and there is an artificial heart valve in place. The left subclavian tra nsvenous pacer remains in place. The heart size is moderately enlarged. There are no confluent infilt rates or effusions. There is no definite perihilar edema. There is mild scarring. Atherosclerotic kerry cifications are again noted in the aorta. The bony thorax remains intact appearance except for a mode rate compression fracture deformity in the lower thoracic spine. CONCLUSION: 1. Cardiomegaly again noted with no definite acute pulmonary edema. 2. Mild scarring with no evidence of pneumonia. Leandro Aponte MD on November 12, 2017 at 8:58 Board Certified Radiologist. This report was verified electronically.
[2017-11-12 09:05] LABS: TROPONIN I 0.03 NG/ML (0.02-0.05)
[2017-11-12 09:14] LABS: INTERNATIONAL NORMALIZED RATIO 1.1 RATIO
[2017-11-12 09:17] LABS: D-DIMER 2.42 MG/L FEU (0.00-0.50)
[2017-11-12] MEDS ORDERED: DILT60CA PO (09:32)
[2017-11-12 09:33] VITALS: BP 110/76; PULSE 86; RESP 18; O2SAT 97
--- NOTE | 2017-11-13 00:10 | EKG ---
Date Performed: 11/12/2017 Time Performed: 08:42:48 PTAGE: 82 years EKG: ATRIAL FIBRILLATION VOLTAGE CRITERIA FOR LVH ST/T WAVE CHANGES MAY BE DUE TO HYPERTROPHY VS ISCHEMIA ABNORMAL ECG INTERPRETATION BASED ON A DEFAULT AGE OF 40 YEARS Compared to PREVIOUS TRACING , rate is now controlled DOCTOR: Phoenix Lemus Interpretating Date/Time 11/13/2017 00:09:03
--- NOTE | 2017-11-13 00:11 | EKG ---
Date Performed: 11/12/2017 Time Performed: 08:19:09 PTAGE: 82 years EKG: ATRIAL FIBRILLATION WITH RAPID VENTRICULAR RESPONSE VOLTAGE CRITERIA FOR LVH ST/T WAVE BRAVO GES MAY BE DUE TO LVH OR ISCHEMIA ABNORMAL ECG INTERPRETATION BASED ON A DEFAULT AGE OF 40 YEARS Comp ared to PREVIOUS TRACING , now noted to be in rapid ventricular response DOCTOR: Phoenix Lemus Interpretating Date/Time 11/13/2017 00:09:52
== END 2017-11-12 09:52 | disposition home or self-care (01) ==
LOC: PHED 08:14
DX: I48.91 Unspecified atrial fibrillation (principal); R06.02 Shortness of breath; R94.31 Abnormal electrocardiogram [ECG] [EKG]; I51.7 Cardiomegaly; I50.9 Heart failure, unspecified; G62.9 Polyneuropathy, unspecified; E03.9 Hypothyroidism, unspecified; Z79.82 Long term (current) use of aspirin; Z79.899 Other long term (current) drug therapy
CPT/HCPCS: 71045; 80048; 82550; 83735; 84484; 85025; 85379; 85610; 85730; 93005; 96361; 96374; 99285; J7040